=== PATIENT | male | born 1955 | race Caucasian/White ===

== ENCOUNTER 2024-04-15 11:24 | Outpatient (OUT) | payer SELFPAY | END 2024-04-15 11:25 | disposition home or self-care (01) | LOC: PST 11:25 | PROVIDERS: Visit Provider Urology | DX: Z01.818 Encounter for other preprocedural examination (principal); R97.20 Elevated prostate specific antigen [PSA] ==

== ENCOUNTER 2024-04-22 07:22 | Day surgery (SDC) | payer MEDICARE, OTHER, SELFPAY ==
--- OUTSIDE RECORDS SUMMARY | 2024-04-22 07:29 | XMS_ITS | CCD ---
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 baseline levels established preoperatively The patient is at or returning to normothermia at the conclusion of the immediate postoperative period The patient's respiratory function is consistent with or improved from baseline levels established preoperatively The patient's cardiovascular status is consistent with or improved from baseline levels established preoperatively The patient's cardiovascular status is consistent with or improved from baseline levels established preoperatively The patient demonstrates and/or reports adequate pain control throughout the perioperative period The patient received appropriate medication(s), safely administered during the perioperative period Acuity Level PACU I FT Entry 1 Start Time 03/27/24 10:52:00 Stop Time 03/27/24 11:22:00 Acuity Level Acuity Level I Last Modified By: Mulu Aguayo RN 03/27/24 11:48:29 Finalized By: Mulu Aguayo RN Document Signatures Signed By: Mulu Aguayo RN 03/27/24 11:48 [facility] Main OR Preoperative Recordo n 03-27-2024 Main OR Preoperative Record Main OR Preoperative Record Holding Area Document Type FT Summary Primary Physician: Galina CUETO, Margot Escobedo Finalized Date/Time: 03/27/24 09:10:48 Pt. Name: PRISCILA DAVIES /Sex: 1955 Male Med Rec #: [id number] Physician: Margot Mojica MD Financial #: [id number] Pt. Type: O Room/Bed: / Admit/Disch: 03/27/24 08:52:25 - Institution: Case Times Holding FT Pre-Care Text: Verifies consent for planned procedure, identifies individual values and wishes concerning care, includes family members in perioperative teaching Secures patient's records' belongings, and valuables, maintains patient's dignity and privacy, and maintains patient confidentiality Entry 1 In Holding 03/27/24 09:06:00 Outcomes Met? Yes Last Modified By: Cait Armendariz RN 03/27/24 09:07:11 Post-Care Text: The patient participates in decisions affecting his or her perioperative plan of care The patient's right to privacy is maintained Surgery Checklist FT Entry 1 Patient Birthday, ID Band Procedure History and Physical, Identification: Check, Patient Verification: Surgical Consent, With Participation Patient Results Reviewed Yellow Personal Items: Glasses, Jewelry Comments: Personal Items Glassess, watch Limitations: Vision, hard of hearing Comment: Complaints of Pain: No Pain Comment: Denies Operative Site n/a Availability Equipment Marking: Verified: Does Patient Smoke No Patient states Yes Comment - Adult - Gert postop adult Supervision supervision available Case Cancelled in No Holding Area see comments below for reason Last Modified By: Cait Armendariz RN 03/27/24 09:10:43 General Comments: Pt completed prep at 0600 and remained NPO since/DESEAN,RN Finalized By: Cait Armendariz RN Document Signatures Signed By: Cait Armendariz RN 03/27/24 09:10 Normal [facility] Outpatient Surgery Discharge Instructionon 03-27-2024 Outpatient Surgery Discharge Instruction Outpatient Surgery Discharge Instruction [address] [address] Patient Discharge Instructions PERSON INFORMATION Name: PRISCILA DAVIES Date of : 1955 Current Date: 03/27/2024 10:24:37 PHYSICIANS Admitting Physician: Galina CUETO, Margot Escobedo Discharge Diagnosis: Colon polyps PRISCILA DAVIES has been given the following list of follow-up instructions, prescriptions, and patient education materials: PATIENT FOLLOW-UP INFORMATION Diet: Regular Discharge Activity: Resume normal activities in 24 hours Discharge Restrictions: No driving for 24 hrs Call Your Doctor For: Persistent or heavy bleeding IF UNABLE TO CONTACT YOUR PHYSICIAN AND YOU FEEL IT IS AN EMERGENCY, GO TO THE NEAREST EMERGENCY ROOM OR CALL 911 I, PRISCILA DAVIES, have received the attached patient education materials/instruction s and have verbalized understanding: May we do a follow up call? Yes No I was present when discharge instructions were given Patient Signature Date Clinican/Nurse Signature Date Follow up: Type Location Start Finish [facility] URO Office Visit [facility] [place] 08/17/2024 12:30 PM 08/17/2024 12:45 PM Confirmed Pharmacy Information: You may receive a survey from Oren Ortega asking you to rate your care experience. Your feedback is important and will help us understand what we do well and how we can improve the quality of care we provide to you, your loved ones and our community. It?s an honor to serve you. Thank you for choosing [facility] HERE ARE THE MEDICATION CHANGES THAT OCCURRED DURING YOUR HOSPITAL STAY Medications to Continue with No Changes Other Medications atorvastatin (atorvastatin 10 mg Tab) 1 Tablets By Mouth every day. fluticasone nasal (fluticasone 0.05 mg/inh Nasal [place]) 2 Sprays Nasal Inhalation every day as needed Congestion. each nostril. Refills: 2. lisinopril (lisinopril 5 mg Tab) 5 Milligram By Mouth 2 times a day. loratadine (loratadine 10 mg Tab) 1 Tablets By Mouth every day. Refills: 2. PATIENT EDUCATION INFORMATION Instructions: Medication Leaflets: [facility] MR prostate wo/w conon 03-25 MR prostate wo/w con [facility] Main [place] [address] [place] [address] MRI Report Signed Patient: Priscila Davies MR#: [id number] : 1955 Acct:[id number] Age/Sex: 69 / M ADM Date: 03/24/24 Loc: Room: Type: [facility] Attending Dr: Erin Schuster MD Copies to: Erin Schuster MD Ordering Provider: Erin Schuster MD Date of Service: 03/24/24 MR/MR prostate wo/w con: R97.20 EXAMINATION: MR prostate wo/w con HISTORY: Elevated PSA. COMPARISON: NONE TECHNIQUE: Multiparametric imaging of the prostate gland was performed with IV contrast. FINDINGS: Prostate Dimensions: 6.0 x 3.7 x 5.8 cm. Prostate Volume: 67 mL. Peripheral Zone: Heterogenous inT2 signal suggestive of prior prostatitis. A focal area of T2 hypointensity is seen involving the posterior aspect of the left peripheral zone at the level of the mid gland measuring 7 x 6 mm with associated restricted diffusion and low ADC value. No gross extracapsular extension is seen. Please see series 4 image 18, series 650 image 20 and series 600 image 20. Central/Transitional Zone: BPH changes. Seminal Vesicles: Unremarkable Neurovascular bundles: Unremarkable. Lymphadenopathy: No evidence of lymphadenopathy. Bladder: No focal lesion. Bowel: Diverticulosis. Peritoneal Cavity: No free fluid. Bones: No suspicious bony lesion. MR/MR prostate wo/w con IMPRESSION: A focal area of T2 hypointensity is seen involving the posterior aspect of the left peripheral zone at the level of the mid gland measuring 7 x 6 mm with associated restricted diffusion and low ADC value. No gross extracapsular extension is seen. Please see series 4 image 18, series 650 image 20 and series 600 image 20. PI-RADS 4. Targeting of this area on biopsy is recommended. Impression dictated by: Davie Meyer Jr., Amadeo03/25/2024 12:37 PM Dictation Location: [place] [address] Transcribed By: [facility] 03/25/24 1237 Dictated By: Davie Meyer Jr, DO 03/25/24 1225 Signed By: 03/25/24 1237 Normal [facility] ISTAT XRay CREon 03-24-2024 ISTAT GFR 43.369 Normal [facility] Comment on above: Result Comment: PERF ORMED BY: [place] [address] PATHOLOGIST [employer] DONTA SUMNER M.D. Performed By: #### I SCRE #### [address] No Panel InformationOrdered By: Erin Schuster on 03-24-2024 Bedside Estimated GFR (eGFR) 43.369 [facility] Whole blood creatinine measu rementOrdered By: Erin Schuster on 03-24-2024 Creatinine [Mass/Vol] 1.7 mg/dL High 0.6-1.3 [facility] Comment on above: ER/ESD physician is notified/shown all ISTAT results.Critical values may be confirmed by laboratory testing ifdeemed necessary by ER attending doctor. Result Comment: ER/E SD physician is notified/shown all ISTAT results. Critical values may be confirmed by laboratory testing if deemed necessary by ER attending doctor. Performed By: #### I SCRE #### [address] Ambulatory Visit Summaryon 0 8-19-2024 Ambulatory Visit Summary Ambulatory Visit Summary PRISCILA DAVIES :1955 Visit Date:03/23/2024 Ambulatory Visit Instructions Your Diagnosis History of colon polyps Obesity Your Care Team Attending Physician - Galina CUETO, Margot Escobedo Primary Care Physician - Laci MICHELLE MD This Is Your Medications List Contact prescribing physician if questions or concerns atorvastatin (atorvastatin 10 mg Tab) fluticasone nasal (fluticasone 0.05 mg/inh Nasal [place]) lisinopril (lisinopril 5 mg Tab) loratadine (loratadine 10 mg Tab) Procedures Performed Colonoscopy (03/11/2019), Eye surgery. Discharge Vitals Heart Rate (Peripheral) 79 Blood Pressure 134/87 Height 72 in Height 182 cm Weight 272.14 lb Weight 123.7 kg BMI 37.34 What to do next Scheduled Follow-Up Appointments Saturday 12:30 PM EST With: Landen CUETO, Erin Hay Where: [facility] [address], [address] [place] [address]- Medications What How Much When Why Instructions Unchanged atorvastatin (atorvastatin 10 mg Tab) 1 Tablets By Mouth Every day Contact prescribing physician if questions or concerns Unchanged fluticasone nasal (fluticasone 0.05 mg/ inh Nasal [place]) 2 Sprays Nasal Inhalation Every day as needed for Congestion Allergic rhinitis, seasonal each nostril Contact prescribing physician if questions or concerns Unchanged lisinopril (lisinopril 5 mg Tab) 5 Milligram By Mouth 2 times a day Contact prescribing physician if questions or concerns Unchanged loratadine (loratadine 10 mg Tab) 1 Tablets By Mouth Every day Allergic rhinitis, seasonal Contact prescribing physician if questions or concerns Allergies Grass (Unknown) No Known Medication Allergies Problems Ongoing - Any problem that you are currently receiving treatment for. Allergic rhinitis, seasonal BMI 35.0-35.9,adult Chronic pain of right knee Concussion with no loss of consciousness Edema of left upper eyelid Elevated PSA Encounter for staple removal History of colon polyps HTN (hypertension) Laceration of occipital region of scalp Mass of right kidney Obesity due to excess calories Renal cyst Renal mass Screening PSA (prostate specific antigen) Spasm of back muscles Historical - Any problem that you are no longer receiving treatment for. Chicken pox Measles Mumps Patient Survey You may receive a survey via text or e-mail asking about your office visit. Please share your experience with us by completing your survey. We appreciate your feedback and thank you for choosing us for your care. Crescencio Peguero [facility] Gastroenterology Office/Clin ic Noteon 03-23-2024 Gastroenterology Office/Clinic Note Gastroenterology Office/Clinic Note Chief Complaint Colonoscopy recall HPI Staff Patient is a 69 year old male who presents today for a 5 year colonoscopy recall. Denies Fhx colon cancer. Denies previous EGD. Denies n/v/c/d, abd pain, bloody or mucus stools. Blood thinners? no GLP-1 agonists? no Colonoscopy 03/11/19 w/Dr. Dennis: Findings small size external hemorrhoids moderate size internal hemorrhoids a 8mm ascending colon polyp was completely removed and retrieved using hot snare a 3 mm sigmoid polyp was removed and retrieved using cold snare Recommendations: Repeat colonoscopy:: In 5 years, Pending pathology results. Pathology: Final Diagnosis (Verified) A: POLYP, ASCENDING COLON, POLYPECTOMY: ? CAUTERIZED HYPERPLASTIC POLYP. B: POLYP, SIGMOID COLON, POLYPECTOMY: ? HYPERPLASTIC POLYP. MRI abd 02/07/24: IMPRESSION: MILD INTERVAL ENLARGEMENT OF MARGINAL CYSTIC COMPONENTS OF AN OTHERWISE STABLE APPEARING BOSNIAK 2F RIGHT UPPER POLE RENAL CYSTIC MASS. NO OTHER SIGNIFICANT CHANGES FROM 11/05/2022, NOTED. Laboratory Results CMP Creatinine: 1.3 mg/dL (02/07/24) History of Present Illness Asymptomatic Review of Systems PHQ Score Initial Depression Screen Score: 0 SCORE Physical Exam Vitals & Measurements HR: 79(Peripheral) BP: 134/87 HT: 72 in HT: 182 cm WT: 123.7 kg WT: 272.14 lb BMI: 37.34 Assessment/Plan 1. History of colon polyps (Z86.010: Personal history of colonic polyps) Multiple polyps, hyperplastic, no other risk factors Ordered: Colonoscopy (Hospital Procedure) 2. Obesity (E66.9: Obesity, unspecified) bmi 37 We discussed diet Follow-up No qualifying data available Problem List/Past Medical History Ongoing Allergic rhinitis, seasonal BMI 35.0-35.9,adult Chronic pain of right knee Concussion with no loss of consciousness Edema of left upper eyelid Elevated PSA Encounter for staple removal History of colon polyps HTN (hypertension) Laceration of occipital region of scalp Mass of right kidney Obesity due to excess calories Renal cyst Renal mass Screening PSA (prostate specific antigen) Spasm of back muscles Historical Chicken pox Measles Mumps Procedure/Surgical History Colonoscopy (03/11/2019), Eye surgery. Medications atorvastatin 10 mg Tab, 10 mg= 1 tab(s), Oral, Daily fluticasone 0.05 mg/inh Nasal [place], 2 spray(s), Nasal, Daily, PRN, 2 refills lisinopril 5 mg Tab, 5 mg, Oral, BID loratadine 10 mg Tab, 10 mg= 1 tab(s), Oral, Daily, 2 refills Allergies Grass (Unknown) No Known Medication Allergies Social History Alcohol Current, 03/02/2019 Other Substance Abuse - Denies Substance Abuse, 03/02/2019 Tobacco - Denies Tobacco Use, 06/01/2021 Never (less than 100 in lifetime) Tobacco Use:. Never Smokeless Tobacco Use:., 03/23/2024 Never (less than 100 in lifetime) Tobacco Use:., 02/10/2024 Family History Family history is negative Immunizations Vaccine Date Status Comments influenza virus vaccine, inactivated 05/31/2022 Recorded tetanus-diphtheria toxoids 04/12/2022 Given influenza virus vaccine, inactivated - Not Given Patient Refuses Normal [facility] Comment on above: Result Comment: Elec tronically Signed By: Galina CUETO, Margot Escobedo\.br\Date and Time Signed: 03/23/24 09:02 EDT Patient Letter FTon 2023 Patient Letter [facility] Patient Letter [facility] 2024 PRISCILA DAVIES [address] [place] [address] : 1955 Dear Priscila, This is a reminder that you are due for an appointment with [facility]. Please contact our office at [phone] to schedule your 5 year colon recall Thank you, [facility] [phone] Normal [facility] CHEMISTRYOrdered By: SYSTEM SYSTEM on 02-17-2024 Free PSA [Mass/Vol] 1.3 ng/mL Invalid Interpretation Code Remisol [facility] Comment on above: Interpretive Data: T he concentration of free PSA and total PSA determined with assays from different manufacturers can vary due to differences in assay methods and specificity. Values obtained with different textile designer's assays cannot be used interchangeably. The methodology used to obtain this result was chemiluminescence using [employer]'s Access Hybritech PSA reagent and Access Hybritech free PSA reagent. Free PSA/Total PSA [Mass fraction] 26.0 % Normal >=25.0% Remisol Chem Prostate specific Ag [Mass/Vol] 5.0 ng/mL High 0.1 - 3.5 ng/mL [facility] Comment on above: Interpretive Data: T he concentration of PSA determined by different manufacturers can vary due to differences in assay methods and reagent specificity. Values obtained from different assay methods cannot be used interchangeably. The methodology used for this result was chemiluminescence using [employer]'s Access Hybritech PSA reagent. PSA Free & Totalon 4 Free PSA/Total PSA [Mass fraction] 26.0 % Normal >=25.0 [facility] Comment on above: Performed By: #### 1 [id number] ####[id number] [place] [address] Prostate specific Ag [Mass/Vol] 5.0 ng/mL High 0.1-3.5 [facility] Comment on above: Result Comment: The concentration of PSA determined by different manufacturers can vary due to differences in assay methods and reagent specificity. Values obtained from different assay methods cannot be used interchangeably. The methodology used for this result was chemiluminescence using [employer]'s Access Hybritech PSA reagent. Performed By: #### 1 [id number] ####[id number] [place] [address] Free PSA [Mass/Vol] 1.3 ng/mL Invalid Interpretation Code [facility] Comment on above: Result Comment: The concentration of free PSA and total PSA determined with assays from different manufacturers can vary due to differences in assay methods and specificity. Values obtained with different textile designer's assays cannot be used interchangeably. The methodology used to obtain this result was chemiluminescence using [employer]ie [employer]'s Access Hybritech PSA reagent and Access Hybritech free PSA reagent. Performed By: #### 1 [id number] ####[facility] [id number] [place] [address] Ambulatory Visit Summaryon 0 02-10-2024 Ambulatory Visit Summary Ambulatory Visit Summary PRISCILA DAVIES :1955 Visit Date:02/10/2024 Ambulatory Visit Instructions Your Diagnosis Renal cyst Elevated PSA Your Care Team Attending Physician - Landen CUETO, Erin Hay Primary Care Physician - Laci MICHELLE MD This Is Your Medications List Contact prescribing physician if questions or concerns atorvastatin (atorvastatin 10 mg Tab) fluticasone nasal (fluticasone 0.05 mg/inh Nasal [place]) lisinopril (lisinopril 5 mg Tab) loratadine (loratadine 10 mg Tab) Procedures Performed Eye surgery. Discharge Vitals Heart Rate (Peripheral) 91 Respiratory Rate 19 Blood Pressure 146/86 Height 183 cm Height 72 in Weight 118.8 kg Weight 261.36 lb BMI 35.47 What to do next You Need to Schedule the Following Appointments Follow Up with Landen CUETO, Erin Hay, URL, URO When: Where: You Need to Complete the Following PSA Free & Total, Blood, Routine collect, 02/10/24, Order for future visit, Lab Collect, Elevated PSA, Required & Missing, Print Label By Order Location MRI Abdomen w/ + w/o Contrast, 07/05/24, Routine, Order for Future Visit, Transport Mode: Ambulatory, Reason: Other (please specify), Reason: Bosniak 2F renal cyst, No, No, Renal cyst, pp_set_radiology_subs pecialty, Not Required, Peguero - Benjamin Medications What How Much When Why Instructions Unchanged atorvastatin (atorvastatin 10 mg Tab) 1 Tablets By Mouth Every day Contact prescribing physician if questions or concerns Unchanged fluticasone nasal (fluticasone 0.05 mg/ inh Nasal [place]) 2 Sprays Nasal Inhalation Every day as needed for Congestion Allergic rhinitis, seasonal each nostril Contact prescribing physician if questions or concerns Unchanged lisinopril (lisinopril 5 mg Tab) 5 Milligram By Mouth 2 times a day Contact prescribing physician if questions or concerns Unchanged loratadine (loratadine 10 mg Tab) 1 Tablets By Mouth Every day Allergic rhinitis, seasonal Contact prescribing physician if questions or concerns Allergies Grass (Unknown) No Known Medication Allergies Problems Ongoing - Any problem that you are currently receiving treatment for. Allergic rhinitis, seasonal BMI 35.0-35.9,adult Chronic pain of right knee Concussion with no loss of consciousness Edema of left upper eyelid Elevated PSA Encounter for staple removal HTN (hypertension) Laceration of occipital region of scalp Mass of right kidney Obesity due to excess calories Renal cyst Renal mass Screening PSA (prostate specific antigen) Spasm of back muscles Historical - Any problem that you are no longer receiving treatment for. Chicken pox Measles Mumps Patient Survey You may receive a survey via text or e-mail asking about your office visit. Please share your experience with us by completing your survey. We appreciate your feedback and thank you for choosing us for your care. Education Materials Prostate Cancer Screening Prostate cancer screening is testing that is done to check for the presence of prostate cancer in men. The prostate gland is a walnut-sized gland that is located below the bladder and in front of the rectum in males. The function of the prostate is to add fluid to semen during ejaculation. Prostate cancer is one of the most common types of cancer in men. Who should have prostate cancer screening? Screening recommendations vary based on age and other risk factors, as well as between the professional organizations who make the recommendations. In general, screening is recommended if: ? You are age 50 to 70 and have an average risk for prostate cancer. You should talk with your health care provider about your need for screening and how often screening should be done. Because most prostate cancers are slow growing and will not cause , screening in this age group is generally reserved for men who have a 10- to 15-year life expectancy. ? You are younger than age 50, and you have these risk factors: ? Having a father, brother, or uncle who has been diagnosed with prostate cancer. The risk is higher if your family member's cancer occurred at an early age or if you have multiple family members with prostate cancer at an early age. ? Being a male who is Black or is of Noah or sub-Saharan descent. In general, screening is not recommended if: ? You are younger than age 40. ? You are between the ages of 40 and 49 and you have no risk factors. ? You are 70 years of age or older. At this age, the risks that screening can cause are greater than the benefits that it may provide. If you are at high risk for prostate cancer, your health care provider may recommend that you have screenings more often or that you start screening at a younger age. How is screening for prostate cancer done? The recommended prostate cancer screening test is a blood test called the prostate-specific antigen (PSA) test. PS (more content not included)... Normal [facility] Reminderson 02-10-2024 Reminders Reminders From: Tanya Higgins To: MEERA Schuster; Sent: 02/10/2024 13:46:09 EDT Show up: 06/12/2024 12:46:00 EST Subject: MRI Due Date/Time: 07/12/2024 12:46:00 EST Reminder Message Pt needs sched for MRI abd w/wo IV con in 6 mos at [facility]. Orders placed. Normal [facility] Urology Office/Clinic Noteon 02-10-2024 Urology Office/Clinic Note Urology Office/Clinic Note Chief Complaint 1 year with PSA and MRI HPI Staff 68 year old male here for 6 month follow up with PSA. MRI done 11/05/22. Previous DX: Renal cyst, screening PSA. MRI 02/07/24. PSA 2.2 done 02/02/23. Dysuria: no Incomplete bladder emptying: Pt. states most of the time he does feel empty Hematuria: UA shows trace today Frequency: 3 hours or longer Urgency: no Nocturia: no Stream: good stream Post void dripping: no Wearing pads/ Depends: no Urge incontinence: no Stress incontinence: no Incontinence without Sensory Awareness: no Abdominal pain: no Flank pain: no History of Present Illness Tests reviewed: reviewed UA, PSA, MRI. I have reviewed the previous health record information and history for this patient from Dr. Schuster. I have reviewed and verified the staff HPI to be accurate for this encounter. There have been no associated fever, chills, flank pain, or blood in the urine. Denies any urinary infections since last encounter. Review of Systems PHQ Score Initial Depression Screen Score: 0 SCORE ROS - Provider Constitutional: denies weight loss, denies hot flashes. Eyes: denies eye problems. Gastrointestinal: denies nausea, denies vomiting. Cardiovascular: denies chest pain or angina. Integumentary: no dryness Musculoskeletal: denies musculoskeletal symptoms. ENMT: denies otolaryngeal symptoms. Respiratory: no shortness of breath. Heme/Lymph: denies easy bleeding tendency, denies easy bruising tendency. Psychiatric: no confusion, no anxiety. Genitourinary: See HPI. Physical Exam Vitals & Measurements HR: 91(Peripheral) RR: 19 BP: 146/86 HT: 72 in HT: 183 cm WT: 118.8 kg WT: 261.36 lb BMI: 35.47 General Appearance: alert, no distress, well nourished, well developed male. Prostate: nontender. Left higher than right. No nodules. Assessment/Plan 68-year-old male with a history of complex renal cyst presents for follow-up. DYAN 25 (5) 1. Renal cyst (N28.1: Cyst of kidney, acquired) Denies family hx of cancers. No smoking hx. CT TAP w IV contrast 04/12/22 at [facility] - 1.8 cm structure, right kidney lateral cortex interpolar region, most likely hemorrhagic/proteinac eous cyst. Multiple bilateral renal cortical and parapelvic cysts. No urinary tract calculi or hydronephrosis. Urinary bladder is well distended. The prostate is enlarged. MRI Abdomen w/wo 05/30/22 - 2.2 cm exophytic complex cystic mass mid pole right kidney laterally. Bosniak IIF cystic renal mass. US retroperitoneal 09/24/22 - stable approximately 2cm Bosniak IIF right renal cyst. MRI abd w/wo contrast 11/05/22 - stable, 2.2cm mildly enhancing partially exophytic lesion arising from the anterolateral of the mid right kidney, consistent with Bosniak IIF cystic mass. MRI abd w/wo IV con 02/07/24 [facility] - mild interval enlargement of marginal cystic components of an otherwise stable appearing Bosniak 2F right upper pole renal cystic mass 3.8 x 2.6 x 2.2 cm (prior 3.3 x 2.2 x 2.0 cm). A mildly septated approx 1.6 cm lesion arising from the medial aspect of the lower pole of the right kidney and numerous other small nonenhancing simple cortical and peripelvic cysts have not significantly changed. Results reviewed with pt If cyst would continue to grow pt would likely benefit from surgical removal. Will cont to monitor closely -MRI abd w/wo IV con in 6 mos 2. Elevated PSA (R97.20: Elevated prostate specific antigen [PSA]) PSA: 02/02/23 - 2.2 02/07/24 - 5.4 IPSS 4 (2) No urinary concerns. UA today shows trace-lysed blood. No known family hx of prostate cancer. Pt states brother might of . Denies prostate manipulation leading up to blood draw. No prior DREs. CHRIS: nontender. Left higher than right. No nodules. Today I reviewed the patients past history including voiding symptoms, PSA history and any prior prostate biopsy information that is available. We discussed the controversies that exist in the field of PSA based cancer testing and the absence of exact correlation of PSA data to the presence or absence of prostate cancer on biopsy. I discussed the production of PSA by the prostate gland as well as common causes of elevated serum PSA including infection, inflammation, BPH and prostate cancer. He understood that his PSA level may also be falsely elevated due to any manipulation/instrume ntation around the time of a PSA draw. I discussed the absolute value of PSA as well as PSA velocity and age specific PSA and the implications with the patient. I gave the patient management options moving forward and explained the risks/benefits of each one: -Continue monitoring PSA with repeat in 6-12 months -Obtain additional biomarkers such as select MDX -Obtain prostate MRI to evaluate for suspicious lesions. He understands MRIs may miss malignancy in 12-16% of patients. Pt to repeat PSA with free & total in 1 wk. Will proceed with prostate MRI if PSA elevation is confirmed. Advised pt that bx will be indic (more content not included)... Normal [facility] Comment on above: Result Comment: Elec tronically Signed By: Erin Schuster MD\.br\Date and Time Signed: 02/10/24 13:50 EDT\.br\Electronically Co-Signed By: Tanya Higgins.br\Date and Time Co-Signed: 02/10/24 13:45 EDT MRI Abdomen w/ + w/o Contras ton 02-09-2024 MRI Abdomen w/ + w/o Contrast Exam Date/Time: 02/07/2024 12:45 EDT Reason for Exam: N28.89;Renal mass Report IMPRESSION: MILD INTERVAL ENLARGEMENT OF MARGINAL CYSTIC COMPONENTS OF AN OTHERWISE STABLE APPEARING BOSNIAK 2F RIGHT UPPER POLE RENAL CYSTIC MASS. NO OTHER SIGNIFICANT CHANGES FROM 11/05/2022, NOTED. EXAM: MRI Abdomen w/ + w/o Contrast DATE: 02/07/2024 11:52 AM CLINICAL HISTORY: Renal mass, N28.89. COMPARISON: 11/05/2022. TECHNIQUE: Multiplanar MR imaging of the abdomen was performed before and after intravenous administration of approximately 10 mL of Vueway gadolinium contrast. FINDINGS: A mildly septated partially exophytic cystic mass arising from the anterolateral aspect of the upper pole of the right kidney is again noted, with interval enlargement of nonenhancing cystic components its posterior and anteromedial margins. The small bandlike minimally enhancing septa appear similar, without significantly increased thickening or nodularity. The lesion measures approximately 3.8 x 2.6 x 2.2 cm in aggregate AP, transverse and sagittal dimensions respectively (compared to 3.3 x 2.2 x 2.0 cm, measured in a similar fashion. A mildly septated approximately 1.6 x 1.2 x 1.0 cm lesion arising from the medial aspect of the lower pole of the right kidney and numerous other small nonenhancing simple cortical and peripelvic cysts have not significantly changed. An approximately 2 cm gallstone is again noted within There is no lymphadenopathy, ascites, or other findings of concern identified elsewhere. Ordering Provider: Erin Schuster FINAL REPORT Dictated: 02/09/2024 10:03 am Luis Nuñez MD Signed (Electronic Signature): 02/09/2024 10:03 am Signed by: Luis Nuñez MD Transcribed by: LISSY Technologist: SOPHIA Technical Comments Vuewkain Technical Comments Contrast amount in ml's: 10 Normal [facility] CHEMISTRYOrdered By: SYSTEM SYSTEM on 02-07-2024 Prostate specific Ag [Mass/Vol] 5.4 ng/mL High 0.1 - 3.5 ng/mL [facility] Comment on above: Interpretive Data: T he concentration of PSA determined by different manufacturers can vary due to differences in assay methods and reagent specificity. Values obtained from different assay methods cannot be used interchangeably. The methodology used for this result was chemiluminescence using [employer]'s Access Hybritech PSA reagent. Creatinine [Mass/Vol] 1.3 mg/dL Normal 0.5 - 1.3 mg/dL [facility] eGFR 60 mL/min/1.73 m2 Normal >=59mL/min /1 .73 m2 [facility] Creatinineon 02-07-2024 Creatinine [Mass/Vol] 1.3 mg/dL Normal 0.5-1.3 [facility] Comment on above: Performed By: #### [id number] #### [facility] [place] Laboratory [address] [place] [address] PSA Totalon 02-07-2024 Prostate specific Ag [Mass/Vol] 5.4 ng/mL High 0.1-3.5 [facility] Comment on above: Result Comment: The concentration of PSA determined by different manufacturers can vary due to differences in assay methods and reagent specificity. Values obtained from different assay methods cannot be used interchangeably. The methodology used for this result was chemiluminescence using [employer]'s Newspepper Hybritech PSA reagent. Performed By: #### 1 [id number] #### [facility] Laboratory [address] [place] [address] eGFRon 02-07-2024 eGFR 60 mL/min/1.73 m2 Normal >=59 [facility] Comment on above: Order Comment: Order added by Discern Expert. Performed By: #### 1 [id number] #### [facility] [place] Laboratory [address] [place] [address] CHEMISTRYOrdered By: fitmob on 11-05-2022 Creatinine [Mass/Vol] 1.4 mg/dL High 0.5 - 1.3 mg/dL [facility] Remisol GFR/1.73 sq M.predicted among blacks MDRD (S/P/Bld) [Vol rate/Area] mL/min/1.73 m2 Normal >=59mL/min/1 .73 m2 [facility] Chem S GFR/1.73 sq M.predicted among non-blacks MDRD (S/P/Bld) [Vol rate/Area] 51 mL/min/1.73 m2 Low >=59mL/min/1 .73 m2 [facility] Chem S BLOOD BANKOrdered By: Humberto Sood on 04-12-2022 ABO/Rh Interp Positive Invalid Interpretation Code [facility] BB Subsection ABSC Gel Interp Negative (04/12/22 11:14 PM) Normal [facility] BB Subsection CHEMISTRYOrdered By: Magisto SYSTEM on 04-12-2022 Albumin [Mass/Vol] 4.0 g/dL Normal 3.3 - 5.0 gm/dL [facility] Remisol Albumin/Globulin [Mass ratio] 1.0 {ratio} Low 1.1 - 2.2 [facility] Remisol ALP [Catalytic activity/Vol] 72 [iU]/d Normal 21 - 98 Int._Unit/L [facility] Remisol ALT No additional P-5'-P [Catalytic activity/Vol] 24 [iU]/d Normal 6 - 46 Int._Unit/L [facility] Remisol Anion gap [Moles/Vol] 14 mmol/L Normal 6 - 16 mEq/L [facility] Remisol AST [Catalytic activity/Vol] 25 [iU]/d Normal 5 - 43 Int._Unit/L [facility] Remisol Bilirubin [Mass/Vol] 1.2 mg/dL High 0.0 - 1 .1 mg/dL [facility] Remisol Bilirubin.direct [Mass/Vol] 0.2 mg/dL Normal 0.1 - 0.4 mg/dL [facility] Remisol Bilirubin.indirect [Mass or moles/Vol] 1.0 mg/dL High 0.1 - 0.9 mg/dL [facility] Remisol Calcium [Mass/Vol] 8.9 mg/dL Normal 8.9 - 11. 1 mg/dL [facility] Remisol Chloride [Moles/Vol] 106 mmol/L Normal 101 - 1 11 mmol/L [facility] Remisol CO2 [Moles/Vol] 24 mmol/L Normal 21 - 31 mmol/L [facility] Remisol Creatinine [Mass/Vol] 1.3 mg/dL Normal 0.5 - 1.3 mg/dL [facility] Remisol Ethanol [Mass/Vol] mg/dL Normal <=7mg/dL [facility] emisol GFR/1.73 sq M.predicted among blacks MDRD (S/P/Bld) [Vol rate/Area] mL/min/1.73 m2 Normal >=59mL/min/1 .73 m2 [facility] Chem S GFR/1.73 sq M.predicted among non-blacks MDRD (S/P/Bld) [Vol rate/Area] 55 mL/min/1.73 m2 Low >=59mL/min/1 .73 m2 [facility] Chem S Globulin (S) [Mass/Vol] 3.9 g/dL Normal 1.4 - 4.0 gm/dL [facility] Remisol Glucose [Mass/Vol] 96 mg/dL Normal 55 - 199 mg/dL [facility] Remisol Lactate [Mass/Vol] 2.9 mmol/L High 0.5 - 2.2 mmol/L [facility] Remisol Lipase [Catalytic activity/Vol] 33 U/L Normal 13 - 58 unit/L [facility] Remisol Potassium [Moles/Vol] 4.9 mmol/L Normal 3.5 - 5.3 mmol/L [facility] Remisol Protein [Mass/Vol] 7.9 g/dL High 6.0 - 7.8 gm/dL [facility] Remisol Sodium [Moles/Vol] 139 mmol/L Normal 135 - 145 mmol/L [facility] Remisol Troponin I.cardiac [Mass/Vol] 5.50 pg/mL Low 15.90 - 38.40 pg/mL [facility] Remisol Urea nitrogen [Mass/Vol] 24 mg/dL High 5 - 21 mg/dL [facility] Remisol Urea nitrogen/Creatinine [Mass ratio] 18 mg/mg Normal 10 - 20 [facility] Remisol COAGULATIONOrdered By: Humberto Sood on 04-12-2022 aPTT Coag (PPP) [Time] 31.2 s Normal 25.1 - 36.5 second(s) [facility] Auto Coag INR Coag (PPP) [Relative time] 1.0 {INR} Invalid Interpretation Code [facility] Auto Coag PT Coag (PPP) [Time] 11.4 s Normal 9.4 - 1 2.5 second(s) [facility] Auto Coag HEMATOLOGYOrdered By: SYSTEM SYSTEM on 04-12-2022 Basophils/100 WBC (Bld) 0.4 % Normal 0.0 - 2.0 % [facility] HemeAutoSS Basophils/Leukocytes Auto (Bld) [Pure # fraction] 0.1 E9/L Normal 0.0 - 0.2 E9/L [facility] HemeAutoSS Eosinophils/100 WBC (Bld) 2.0 % Normal 0.0 - 8.0 % [facility] HemeAutoSS Eosinophils/Leukocytes Auto (Bld) [Pure # fraction] 0.3 E9/L Normal 0.0 - 0.5 E9/L [facility] HemeAutoSS Lymphocytes/100 WBC (Bld) 13.7 % Low 14.0 - 50.0 % [facility] HemeAutoSS Lymphocytes/Leukocytes Auto (Bld) [Pure # fraction] 1.7 E9/L Normal 1.0 - 4.0 E9/L [facility] HemeAutoSS Monocytes/100 WBC (Bld) 6.6 % Normal 4.0 - 14.0 % [facility] HemeAutoSS Monocytes/Leukocytes Auto (Bld) [Pure # fraction] 0.8 E9/L Normal 0.2 - 1.0 E9/L [facility] HemeAutoSS Neutrophils/100 WBC (Bld) 77.3 % High 36.0 - 75.0 % [facility] HemeAutoSS Neutrophils/Leukocytes Auto (Bld) [Pure # fraction] 9.6 E9/L High 2.0 - 7.5 E9/L [facility] HemeAutoSS HEMATOLOGYOrdered By: Humberto Sood on 04-12-2022 Erythrocyte distribution width (RBC) [Ratio] 14.3 % High 10.9 - 14.2 % [facility] HemeAutoSS Hematocrit (Bld) [Volume fraction] 41.5 % Normal 37.7 - 49.0 % [facility] HemeAutoSS Hemoglobin (Bld) [Mass/Vol] 14.0 g/dL Normal 13.5 - 17.5 gm/dL [facility] HemeAutoSS MCH (RBC) [Entitic mass] 29.2 pg Normal 27.0 - 34.0 pg [facility] HemeAutoSS MCHC (RBC) [Mass/Vol] 33.6 g/dL Normal 31.4 - 36.0 gm/dL [facility] HemeAutoSS MCV (RBC) [Entitic vol] 86.8 fL Normal 80.0 - 100.0 fL [facility] HemeAutoSS Platelet mean volume (Bld) [Entitic vol] 6.8 fL Normal 6.4 - 10.8 fL [facility] HemeAutoSS Platelets (Bld) [#/Vol] 206.0 E9/L Normal 150.0 - 500.0 E9/L [facility] HemeAutoSS RBC (Bld) [#/Vol] 4.8 E12/L Normal 4.3 - 5.9 E12/L [facility] HemeAutoSS WBC corrected for nucl RBC Auto (Bld) [#/Vol] 12.4 E9/L High 4.0 - 11.0 E9/L [facility] HemeAutoSS XR KNEE RIGHT (MIN 4 VIEWS)o n 08-11-2019 XR KNEE RIGHT (MIN 4 VIEWS) EXAM: XR KNEE RIGHT (MIN 4 VIEWS) HISTORY: M25.561 64-year-old male twisted knee March,. Persistent pain. COMPARISON: None. TECHNIQUE: Right knee series consists of standing views of both knees, sunrise, oblique, and lateral right knee. FINDINGS: Chronic small ossicles, 3 in number measuring up to 5 mm along the length of the lateral collateral ligament on the standing view. Mild tricompartmental osteoarthritic change. There might be a small suprapatellar joint effusion. No fracture. Mild degenerative change left knee. IMPRESSION: Chronic calcifications in the region of the lateral collateral ligament right knee. Mild bilateral degenerative changes without fracture. Possibly a small right suprapatellar joint effusion. Interpreted by: Zacarias Parham Jr., MD Signed by: Zacarias Parham Jr., MD 08/11/19 Final result Normal [facility] Vital Signs Date Time Vital Sign Value Performing Clinician Ramiro barton 03-27-2024 11:20-0400 Blood Pressure Location Frost Patrickmini [facility] 03-27-2024 11:20-0400 Diastolic blood pressure 89 mm[Hg] Frost Sarmini [facility] 03-27-2024 11:20-0400 Heart rate 68 /min Frost Patrickmini [facility] 03-27-2024 11:20-0400 Mean blood pressure 110 mm[Hg] Frost Sarmini [facility] 03-27-2024 11:20-0400 Respiratory rate 12 /min Frost Patrickmini [facility] 03-27-2024 11:20-0400 SaO2% (BldA) [Mass fraction] 96 % Frost Patrickmini [facility] 03-27-2024 11:20-0400 Systolic blood pressure 151 mm[Hg] Frost Sarmini [facility] 03-27-2024 11:05-0400 Blood Pressure Location Frost Sarmini [facility] 03-27-2024 11:05-0400 Diastolic blood pressure 93 mm[Hg] Frost Sarmini [facility] 03-27-2024 11:05-0400 Heart rate 73 /min Frost Sarmini [facility] 03-27-2024 11:05-0400 Mean blood pressure 108 mm[Hg] Frost Sarmini [facility] 03-27-2024 11:05-0400 Respiratory rate 15 /min Frost Sarmini [facility] 03-27-2024 11:05-0400 SaO2% (BldA) [Mass fraction] 94 % Frost Sarmini [facility] 03-27-2024 11:05-0400 Systolic blood pressure 139 mm[Hg] Frost Sarmini [facility] 03-27-2024 11:00-0400 Diastolic blood pressure 90 mm[Hg] Frost Sarmini [facility] 03-27-2024 11:00-0400 Heart rate 74 /min Frost Sarmini [facility] 03-27-2024 11:00-0400 Respiratory rate 14 /min Frost Sarmini [facility] 03-27-2024 11:00-0400 Systolic blood pressure 144 mm[Hg] Frost Sarmini [facility] 03-27-2024 10:55-0400 Respiratory rate 17 /min Frost Sarmini [facility] 03-27-2024 10:52-0400 Body temperature 97.7 [degF] Frost Sarmini [facility] 03-27-2024 09:25-0400 Body temperature 98.6 [degF] Frost Sarmini [facility] 03-27-2024 09:25-0400 Respiratory rate 20 /min Frost Sarmini [facility] 03-23-2024 08:39-0400 Diastolic blood pressure 87 mm[Hg] Frost Sarmini [facility] 03-23-2024 08:39-0400 Mean blood pressure 103 mm[Hg] Frost Sarmini [facility] 03-23-2024 08:39-0400 Systolic blood pressure 134 mm[Hg] Frost Sarmini [facility] 03-23-2024 08:34-0400 Blood Pressure Location Frost Sarmini [facility] 03-23-2024 08:34-0400 Diastolic blood pressure 75 mm[Hg] Frost Sarmini [facility] 03-23-2024 08:34-0400 Heart rate 79 /min Frost Sarmini [facility] 03-23-2024 08:34-0400 Systolic blood pressure 154 mm[Hg] Frost Sarmini [facility] 02-10-2024 13:07-0400 Blood Pressure Location Erin Lue [facility] 02-10-2024 13:07-0400 Diastolic blood pressure 86 mm[Hg] Erin Lue [facility] 02-10-2024 13:07-0400 Heart rate 91 /min Erin Lue [facility] 02-10-2024 13:07-0400 Respiratory rate 19 /min Erin Lue [facility] 02-10-2024 13:07-0400 Systolic blood pressure 146 mm[Hg] Erin Lue [facility] 06-07-2022 07:47-0400 Blood Pressure Location Erin Lue [facility] 06-07-2022 07:47-0400 Diastolic blood pressure 76 mm[Hg] Erin Lue [facility] 06-07-2022 07:47-0400 Heart rate 64 /min Erin Lue [facility] 06-07-2022 07:47-0400 Respiratory rate 16 /min Erin Lue [facility] 06-07-2022 07:47-0400 Systolic blood pressure 139 mm[Hg] Erin Lue [facility] 04-20-2022 09:41-0400 Blood Pressure Location Laci MICHELLE [facility] [place] 04-20-2022 09:41-0400 Body temperature 97.52 [degF] Laci MICHELLE [facility] 04-20-2022 09:41-0400 Diastolic blood pressure 86 mm[Hg] Laci MICHELLE [facility] 04-20-2022 09:41-0400 Heart rate 67 /min Fabianbrianna MICHELLE [facility] 04-20-2022 09:41-0400 SaO2% (BldA) [Mass fraction] 97 % Laci MICHELLE [facility] 04-20-2022 09:41-0400 Systolic blood pressure 132 mm[Hg] Laci MICHELLE [facility] 04-13-2022 14:00-0400 Heart rate 84 /min Morgan Reyes [facility] 04-13-2022 14:00-0400 Respiratory rate 15 /min Morgan Reyes [facility] 04-13-2022 14:00-0400 SaO2% (BldA) [Mass fraction] 95 % Morgan Reyes [facility] 04-13-2022 01:17-0400 Diastolic blood pressure 87 mm[Hg] Morgan Reyes [facility] 04-13-2022 01:17-0400 Heart rate 86 /min Morgan Reyes [facility] 04-13-2022 01:17-0400 Mean blood pressure 106 mm[Hg] Morgan Reyes [facility] 04-13-2022 01:17-0400 Respiratory rate 11 /min Morgan Reyes [facility] 04-13-2022 01:17-0400 SaO2% (BldA) [Mass fraction] 98 % Morgan Reyes [facility] 04-13-2022 01:17-0400 Systolic blood pressure 145 mm[Hg] Morgan Reyes [facility] 04-13-2022 00:21-0400 Diastolic blood pressure 85 mm[Hg] Morgan Reyes [facility] 04-13-2022 00:21-0400 Heart rate 85 /min Morgan Reyes [facility] 04-13-2022 00:21-0400 Mean blood pressure 107 mm[Hg] Morgan Reyes [facility] 04-13-2022 00:21-0400 Respiratory rate 16 /min Morgan Reyes [facility] 04-13-2022 00:21-0400 SaO2% (BldA) [Mass fraction] 96 % Morgan Reyes [facility] 04-13-2022 00:21-0400 Systolic blood pressure 150 mm[Hg] Moragn Reyes [facility] 04-12-2022 23:21-0400 Body temperature 98.6 [degF] Morgan Reyes [facility] 04-12-2022 23:21-0400 Diastolic blood pressure 86 mm[Hg] Morgan Reyes [facility] 04-12-2022 23:21-0400 Heart rate 84 /min Morgan Reyes [facility] 04-12-2022 23:21-0400 Respiratory rate 18 /min Morgan Reyes [facility] 04-12-2022 23:21-0400 Systolic blood pressure 154 mm[Hg] Morgan Reyes [facility] 04-12-2022 23:07-0400 Body temperature 98.6 [degF] Morgan Reyes [facility] 04-12-2022 23:07-0400 Heart rate 89 /min Morgan Chambers [facility] 04-12-2022 23:07-0400 Respiratory rate 18 /min Morgan Chambers [facility] Encounters Encounter Date Encounter Type Care Provider Facility Start: 08-17-2024 ambulatory Erin M. Lue Facility[facility] Start: 04-22-2024 ambulatory Erin M. Lue Facility:[facility] Start: 03-27-2024 End: 03-27-2024 ambulatory Frost Talal Sarmini Facility:[facility] Start: 03-27-2024 End: 03-27-2024 Patient encounter procedure Frost Talal Sarmini [facility] Start: 03-24-2024 End: 03-24-2024 Patient encounter procedure MD Riley Michelle Work Phone: [facility] Work Phone: Start: 03-24-2024 End: 03-24-2024 ambulatory MD Riley Michelle Work Phone: [facility] Work Phone: Start: 03-23-2024 End: 03-23-2024 ambulatory Frost Talal Sarmini Facility:[facility] Start: 03-23-2024 End: 03-23-2024 Patient encounter procedure Frost Talal Sarmini [facility] Start: 02-17-2024 End: 02-17-2024 ambulatory Erin M. Lue Facility:[facility] Start: 02-17-2024 End: 02-17-2024 Patient encounter procedure Erin Schuster [facility] Start: 02-10-2024 End: 02-10-2024 ambulatory Erin Brownee Facility:[facility] Start: 02-10-2024 End: 02-10-2024 Patient encounter procedure Erin Schuster [facility] Start: 02-07-2024 End: 02-07-2024 ambulatory Erin Schuster Facility:[facility] Start: 02-07-2024 End: 02-07-2024 Patient encounter procedure Erin Schuster [facility] Start: 11-29-2023 ambulatory Laura Au ty: [facility] Start: 02-04-2023 End: 02-04-2023 Patient encounter procedure Erin Schuster [facility] Start: 02-02-2023 End: 02-02-2023 Patient encounter procedure Erin Schuster [facility] Start: 11-05-2022 End: 11-05-2022 Patient encounter procedure Erin Schuster [facility] Start: 06-07-2022 End: 06-07-2022 Patient encounter procedure Erin Brownee [facility] Start: 04-20-2022 End: 04-20-2022 [facility] Start: 04-12-2022 End: 04-13-2022 Emergency department patient visit Morgan Chambers [facility] Start: 08-11-2019 End: 08-14-2019 [facility] Start: 08-11-2019 End: 08-13-2019 Subsequent hospital visit by physician Jake Barahona DO Work Phone: [facility] Procedures Date Procedure Procedure Detail Performing Clinician Start: 03-27-2024 Colonoscopy Frostephraim Flores armrafaela Start: 08-11-2019 Radiologic exam knee complete 4/more views [facility] Start: 03-11-2019 Colonoscopy Frostephraim salinas Ophthalmic surgery (qualifier value) Morgan Chambers Plan of Treatment Date Care Activity Detail Author Start: 03-24-2024 MR Prostate WO and W contrast IV [facility] Start: 03-24-2024 MR prostate wo/w con MR prostate wo/ w con [facility] Start: 03-01-2024 Colon cancer screen colonoscopy Colon cancer screen colonoscopy [facility] Phone: Start: 04-05-2019 Influenza vaccination Flu vaccine (# 1) [facility] Phone: Start: 02-17-2006 Shingles Vaccine (1 of 2) Shingles Vaccine (1 of 2) [facility] Phone: Start: 02-17-1971 HIV screen HIV screen [facility] Phone: Start: 02-17-1967 DTaP/Tdap/Td vaccine (1 - Tdap) DTaP/Tdap/Td vaccine (1 - Tdap) [employer] Phone: Start: 02-17-1966 Lipid screen Lipid screen [facility] [employer] Work Phone: Start: 1955 Creatinine monitoring Creatinine mon jess [employer] Work Phone: Start: 1955 Hepatitis C screen Hepatitis C echo saavedra [employer] Work Phone: Start: 1955 Potassium monitoring Potassium monit scott [employer] Work Phone: Immunizations Immunization Date Immunization Notes Care Provider Jessica watters 05-31-2022 influenza virus vaccine, unspecified formulation Erin Landen [facility] 04-12-2022 tetanus and diphther ia toxoids, adsorbed, preservative free, for adult use (2 Lf of tetanus toxoid and 2 Lf of diphtheria toxoid) Morgan Chambers [facility] NEGATED: Highlighted row has not occurred!05-26-2021 influenza virus vaccine, unspecified formulation Morgan Chambers [facility] [place] Payers Date Payer Category Payer Self-pay 2024 Unknown [id number] 2023 Medicare [id number] 2014 Unknown [id number] 2014 Unknown BCBS BCBS OUT OF STATE xxxxxxxxxxxx 2014-Present [address] [place] [address] xxxxxxxxxxxx [id number] 1955 Unknown [id number] 1955 Unknown [id number] 1956 Unknown [id number] 1955 Unknown [id number] 1955 Unknown [id number] 1955 Unknown [id number] 1956 Unknown [id number] 1955 Unknown [id number] 1955 Unknown [id number] 1955 Unknown [id number]. Unknown [id number] Social History Date Type Detail Facility Start: 10-05-2015 End: 03-23-2024 Tobacco smoking status [facility] Never smoker [employer] Phone: Start: 10-05-2015 Alcohol intake Current drinke r of alcohol (finding) [employer] Phone: Sex Assigned At Not on file [employer] Phone: Sex Assigned At Male [facility] Never [facility] Start: 1955 Sex Assigned At Male [facility] Functional Status Date Assessment Result Facility 03-27-2024 Functional Status N/A [facility] 03-23-2024 Functional Status N/A [facility] 02-10-2024 Functional Status N/A [facility] 02-04-2023 Functional Status N/A [facility] 06-07-2022 Functional Status N/A [facility] 04-20-2022 N/A [facility] 04-12-2022 Functional Status N/A [facility] Clinical Notes 04-12-2022 to 03-27-2024 Note Date & Type Note Facility 03-27-2024 Evaluation + Plan note Extrac mckayla from: Title:ANES Post-operative Note---General Author: Ángel Gomez MD Date:03/27/24 Plan Transfer/Discharge: Transfer/Discharge Discharge when meets criteria ( To home ). Extracted from: Title:ANES Pre-operative Note 2022 Author:Ángel Buck Date:03/27/24 Plan [employer] (ASA) physical status classification: Class III. Anesthetic Preoperative Plan: Anesthesia General. Future Appointments Appointment Date:08/17/2024 12:30:00 PM Scheduled Provider:Erin Schuster MD Location:[facility] Appointment Type:URO Office Visit Future Scheduled Tests Radiology* MRI Pelvis (Soft Tissue) w/ + w/o contrast 02/17/24 * MRI Abdomen w/ + w/o Contrast 07/05/24 [facility] 08-23-2024 NoteProgress Note-Physician Patient: PRISCILA DAVIES Age: 69 years Sex: Male : 1955 Associated Diagnoses: None Author: Ángel Gomez MD Postoperative Information Postoperative disposition: Postoperative disposition: To PACU. Optimetrix number: Optimetrix number [id number]. Anesthetic utilized: General. Health Status Allergies: Allergic Reactions (Selected) Severity Not Documented Grass- Unknown. No Known Medication Allergies Physical Examination Vital Signs 03/27/2024 11:20 EDT Heart Rate Monitored 68 bpm Respiratory Rate 12 br/min LOW Systolic Blood Pressure 151 mmHg HI Diastolic Blood Pressure 89 mmHg Blood Pressure Location Left arm Mean Arterial Pressure, Cuff 110 mmHg SpO2 96 % 03/27/2024 11:05 EDT Heart Rate Monitored 73 bpm Respiratory Rate Monitored 15 br/min Systolic Blood Pressure 139 mmHg Diastolic Blood Pressure 93 mmHg HI Blood Pressure Location Left arm Mean Arterial Pressure, Cuff 108 mmHg SpO2 94 % 03/27/2024 11:00 EDT Heart Rate Monitored 74 bpm Respiratory Rate Monitored 14 br/min Systolic Blood Pressure 144 mmHg HI Diastolic Blood Pressure 90 mmHg HI Blood Pressure Location Left arm Mean Arterial Pressure, Cuff 108 mmHg SpO2 94 % 03/27/2024 10:55 EDT Heart Rate Monitored 71 bpm Respiratory Rate Monitored 17 br/min Systolic Blood Pressure 127 mmHg Diastolic Blood Pressure 81 mmHg Blood Pressure Location Left arm Mean Arterial Pressure, Cuff 96 mmHg SpO2 94 % 03/27/2024 10:52 EDT Temperature Temporal Artery 36.5 DegC Heart Rate Monitored 70 bpm Respiratory Rate Monitored 9 br/min Systolic Blood Pressure 120 mmHg Diastolic Blood Pressure 77 mmHg Blood Pressure Location Left arm Mean Arterial Pressure, Cuff 91 mmHg SpO2 94 % Pain Assessment: Controlled. General: Awake, Appropriate. Respiratory: Adequate air exchange. Cardiovascular: Stable. Neurological Assessment Anesthetic outcome No anesthetic complications noted. Adequate pain relief. Review / Management Condition: Stable. Plan Transfer/Discharge: Transfer/Discharge Discharge when meets criteria ( To home ).[facility]Result Comment: Electronically Signed By: Jason CUETO, Ángel Renee\.br\Date and Time Signed: 03/27/24 13:22 EDT 03-27-2024 Hospital Discharge instructions Patient Education 03/27/2024 11:09:18 Colonoscopy, Care After Surgery Salam (CUSTOM) Colonoscopy Care After Surgery Please read the instructions outlined below and refer to this sheet in the next few weeks. These discharge instructions provide you with general information on [facility] Your doctor may also give you specific instructions. While your treatment has been planned according to the most current medical practices available, unavoidable complications occasionally occur. If you have any problems or questions after discharge, please call your doctor. ACTIVITY You may resume your regular activity, but move at a slower pace for the next 24 hours. Take frequent rest periods for the next 24 hours. Walking will help get rid of the air and reduce the bloated feeling in your abdomen (belly). No driving for 24 hours (because of the anesthesia (medicine) used during the test). You may shower. Do not sign any important legal documents or operate any machinery for 24 hours (because of the anesthesia used during the test). NUTRITION Drink plenty of fluids. You may resume your normal diet as instructed by your doctor. Begin with a light meal and progress to your normal diet. Heavy or fried foods are harder to digestand may make you feel nauseated (sick to your stomach). Avoid alcoholic beverages for 24 hours or as instructed. MEDICATIONS You may resume your normal medications unless your doctor tells you otherwise. WHAT YOU CAN EXPECT TODAY Some feelings of bloating in the abdomen. Passage of more gas than usual. Spotting of blood in your stool or on the toilet paper. FOLLOW-UP Your doctor will discuss the results of your test with you. SEEK IMMEDIATE MEDICAL ATTENTION IF: There is more than a spotting of blood in your stool. There is abdominal distention (your abdomen is swollen). There is vomiting. You have a temperature over 101.5 F. There is abdominal pain or discomfort that is severe or gets worse throughout the day. 03/27/2024 11:09:12 Hemorrhoids, Nljj-se-Qdcf Hemorrhoids Hemorrhoids are swollen veins that may develop: In the butt (rectum). These are called internal hemorrhoids. Around the opening of the butt (anus). These are called external hemorrhoids. Hemorrhoids can cause pain, itching, or bleeding. Most of the time, they do not cause serious problems. They usually get better with diet changes, lifestyle changes, and other home treatments. What are the causes? This condition may be caused by: Having trouble pooping (constipation). Pushing hard (straining) to poop. Watery poop (diarrhea). . Being very overweight (obese). Sitting for long periods of time. Heavy lifting or other activity that causes you to strain. Anal sex. Riding a bike for a long period of time. What are the signs or symptoms? Symptoms of this condition include: Pain. Itching or soreness in the butt. Bleeding from the butt. Leaking poop. Swelling in the area. One or more lumps around the opening of your butt. How is this diagnosed? A doctor can often diagnose this condition by looking at the affected area. The doctor may also: Do an exam that involves feeling the area with a gloved hand (digital rectal exam). Examine the area inside your butt using a small tube (anoscope). Order blood tests. This may be done if you have lost a lot of blood. Have you get a test that involves looking inside the colon using a flexible tube with a camera on the end (sigmoidoscopy or colonoscopy). How is this treated? This condition can usually be treated at home. Your doctor may tell you to change what you eat, make lifestyle changes, or try home treatments. If these do not help, procedures can be done to remove the hemorrhoids or make them smaller. These may involve: Placing rubber bands at the base of the hemorrhoids to cut off their blood supply. Injecting medicine into the hemorrhoids to shrink them. Shining a type of light energy onto the hemorrhoids to cause them to fall off. Doing surgery to remove the hemorrhoids or cut off their blood supply. Follow these instructions at home: Eating and drinking Eat foods that have a lot of fiber in them. These include whole grains, beans, nuts, fruits, and vegetables. Ask your doctor about taking products that have added fiber (fibersupplements). Reduce the amount of fat in your diet. You can do this by: ?Eating low-fat dairy products. ?Eating less red meat. ?Avoiding processed foods. Drink enough fluid to keep your pee (urine) pale yellow. Managing pain and swelling Take a warm-water bath (sitz bath) for 20 minutes to ease pain. Do this 3 4 times a day. You may dothis in a bathtub or using a portable sitz bath that fits over the toilet. If told, put ice on the painful area. It may be helpful to use ice between your warm baths. ?Put ice in a plastic bag. ?Place a towel between your skin and the bag. ?Leave the ice on for 20 minutes, 2 3 times a day. General instructions Take dsro-jsj-vckofic and prescription medicines only as told by your doctor. ?Medicated creams and medicines may be used as told. Exercise often. Ask your doctor how much and what kind of exercise is best for you. Go to the bathroom when you have the urge to poop. Do not wait. Avoid pushing too hard when you poop. Keep your butt dry and clean. Use wet toilet paper or moist towelettes after pooping. Do not sit on the toilet for a long time. Keep all follow-up visits as told by your doctor. This is important. Contact a doctor if you: Have pain and swelling that do not get better with treatment or medicine. Have trouble pooping. Cannot poop. Have pain or swelling outside the area of the hemorrhoids. Get help right away if you have: Bleeding that will not stop. Summary Hemorrhoids are swollen veins in the butt or around the opening of the butt. They can cause pain, itching, or bleeding. Eat foods that have a lot of fiber in them. These include whole grains, beans, nuts, fruits, and vegetables. Take a warm-water bath (sitz bath) for 20 minutes to ease pain. Do this 3 4 times a day. This information is not intended to replace advice given to you by your health care provider. Make sure you discuss any questions you have with your health care provider. Document Revised: 01/31/2022 Document Reviewed: 01/31/2022 [employer] Patient Education 2022 [employer]. 03/27/2024 11:08:51 Diverticulosis Diverticulosis Diverticulosis is a condition that develops when small pouches (diverticula) form in the wall of the large intestine (colon). The colon is where water is absorbed and stool (feces) is formed. The pouches form when the inside layer of the colon pushes through weak spots in the outer layers of the colon. You may have a few pouches or many of them. The pouches usually do not cause problems unless they become inflamed or infected. When this happens, the condition is called diverticulitis. What are the causes? The cause of this condition is not known. What increases the risk? The following factors may make you more likely to develop this condition: Being older than age 60. Your risk for this condition increases with age. Diverticulosis is rare among people younger than age 30. By age 80, many people have it. Eating a low-fiber diet. Having frequent constipation. Being overweight. Not getting enough exercise. Smoking. Taking frva-mdl-oeifxoo pain medicines, like aspirin and ibuprofen. Having a family history of diverticulosis. What are the signs or symptoms? In most people, there are no symptoms of this condition. If you do have symptoms, they may include: Bloating. Cramps in the abdomen. Constipation or diarrhea. Pain in the lower left side of the abdomen. How is this diagnosed? Because diverticulosis usually has no symptoms, it is most often diagnosed during an exam for othercolon problems. The condition may be diagnosed by: Using a flexible scope to examine the colon (colonoscopy). Taking an X-ray of the colon after dye has been put into the colon (barium enema). Having a CT scan. How is this treated? You may not need treatment for this condition. Your health care provider may recommend treatment toprevent problems. You may need treatment if you have symptoms or if you previously had diverticulitis. Treatment may include: Eating a high-fiber diet. Taking a fiber supplement. Taking a live bacteria supplement (probiotic). Taking medicine to relax your colon. Follow these instructions at home: Medicines Take jlee-pfz-akicikb and prescription medicines only as told by your health care provider. If told by your health care provider, take a fiber supplement or probiotic. Constipation prevention Your condition may cause constipation. To prevent or treat constipation, you may need to: Drink enough fluid to keep your urine pale yellow. Take sfgw-bet-mitnlsh or prescription medicines. Eat foods that are high in fiber, such as beans, whole grains, and fresh fruits and vegetables. Limit foods that are high in fat and processed sugars, such as fried or sweet foods. General instructions Try not to strain when you have a bowel movement. Keep all follow-up visits as told by your health care provider. This is important. Contact a health care provider if you: Have pain in your abdomen. Have bloating. Have cramps. Have not had a bowel movement in 3 days. Get help right away if: Your pain gets worse. Your bloating becomes very bad. You have a fever or chills, and your symptoms suddenly get worse. You vomit. You have bowel movements that are bloody or black. You have bleeding from your rectum. Summary Diverticulosis is a condition that develops when small pouches (diverticula) form in the wall of the large intestine (colon). You may have a few pouches or many of them. This condition is most often diagnosed during an exam for other colon problems. Treatment may include increasing the fiber in your diet, taking supplements, or taking medicines. This information is not intended to replace advice given to you by your health care provider. Make sure you discuss any questions you have with your health care provider. Document Revised: 2020 Document Reviewed: 2020 [employer] Patient Education 2022 [employer] 03/27/2024 11:08:43 Colon Polyps Colon Polyps Colon polyps are tissue growths inside the colon, which is part of the large intestine. They are one of the types of polyps that can grow in the body. A polyp may be a round bump or a mushroom-shapedgrowth. You could have one polyp or more than one. Most colon polyps are noncancerous (benign). However, some colon polyps can become cancerous over time. Finding and removing the polyps early can help prevent this. What are the causes? The exact cause of colon polyps is not known. What increases the risk? The following factors may make you more likely to develop this condition: Having a family history of colorectal cancer or colon polyps. Being older than 45 years of age. Being younger than 45 years of age and having a significant family history of colorectal cancer or colon polyps or a genetic condition that puts you at higher risk of getting colon polyps. Having inflammatory bowel disease, such as ulcerative colitis or Crohn's disease. Having certain conditions passed from parent to child (hereditary conditions), such as: ?Familial adenomatous polyposis (FAP). ?Sharp syndrome. ?Turcot syndrome. ?Peutz Jeghers syndrome. ?MUTYH-associated polyposis (MAP). Being overweight. Certain lifestyle factors. These include smoking cigarettes, drinking too much alcohol, not gettingenough exercise, and eating a diet that is high in fat and red meat and low in fiber. Having had childhood cancer that was treated with radiation of the abdomen. What are the signs or symptoms? Many times, there are no symptoms. If you have symptoms, they may include: Blood coming from the rectum during a bowel movement. Blood in the stool (feces). The blood may be bright red or very dark in color. Pain in the abdomen. A change in bowel habits, such as constipation or diarrhea. How is this diagnosed? This condition is diagnosed with a colonoscopy. This is a procedure in which a lighted, flexible scope is inserted into the opening between the buttocks (anus) and then passed into the colon to examine the area. Polyps are sometimes found when a colonoscopy is done as part of routine cancer screening tests. How is this treated? This condition is treated by removing any polyps that are found. Most polyps can be removed during a colonoscopy. Those polyps will then be tested for cancer. Additional treatment may be needed depending on the results of testing. Follow these instructions at home: Eating and drinking Eat foods that are high in fiber, such as fruits, vegetables, and whole grains. Eat foods that are high in calcium and vitamin D, such as milk, cheese, yogurt, eggs, liver, fish, and broccoli. Limit foods that are high in fat, such as fried foods and desserts. Limit the amount of red meat, precooked or cured meat, or other processed meat that you eat, such as hot dogs, sausages, silva, or meat loaves. Limit sugary drinks. Lifestyle Maintain a healthy weight, or lose weight if recommended by your health care provider. Exercise every day or as told by your health care provider. Do not use any products that contain nicotine or tobacco, such as cigarettes, e- cigarettes, and chewing tobacco. If you need help quitting, ask your health care provider. Do not drink alcohol if: ?Your health care provider tells you not to drink. ?You are , may be , or are planning to become . If you drink alcohol: ?Limit how much you use to: ?0 1 drink a day for women. ?0 2 drinks a day for men. ?Know how much alcohol is in your drink. In the [place] one drink equals one 12 oz bottle of beer (355 mL), one 5 oz glass of wine (148 mL), or one 1 oz glass of hard liquor (44 mL). General instructions Take pltx-xde-ygunhgn and prescription medicines only as told by your health care provider. Keep all follow-up visits. This is important. This includes having regularly scheduled colonoscopies. Talk to your health care provider about when you need a colonoscopy. Contact a health care provider if: You have new or worsening bleeding during a bowel movement. You have new or increased blood in your stool. You have a change in bowel habits. You lose weight for no known reason. Summary Colon polyps are tissue growths inside the colon, which is part of the large intestine. They are one type of polyp that can grow in the body. Most colon polyps are noncancerous (benign), but some can become cancerous over time. This condition is diagnosed with a colonoscopy. This condition is treated by removing any polyps that are found. Most polyps can be removed during a colonoscopy. This information is not intended to replace advice given to you by your health care provider. Make sure you discuss any questions you have with your health care provider. Document Revised: 11/09/2020 Document Reviewed: 11/09/2020 [employer] Patient Education 2022 [employer]. Follow Up Care 03/23/2024 11:02:34 With:Galina CUETO, TAYLOR Abdalla, [facility] Address: [address], [address] [phone] When: Unknown Comments:Office will call to schedule follow up appointment and/or review any pending biopsy resultsCall forany problems. [facility] 08-23-2024 NoteProgress Note-Physician Patient: PRISCILA DAVIES Age: 69 years Sex: Male : 1955 Associated Diagnoses: None Author: Ángel Gomez MD Preoperative Information Anesthesia Preop Info: Time patient last ate or drank 03/27/2024 00:00:00. Anesthesia history: Patient history: None. Family history+: None. Informed consent: Signed by patient. Re-evaluation prior to induction: Initial evaluation reviewed: No significant change. Review of Systems Eye Ear/Nose/Mouth/Throat Respiratory: No shortness of breath, No cough. Cardiovascular: Negative, No chest pain. Gastrointestinal: No heartburn. Musculoskeletal Neurologic Health Status Allergies: Allergic Reactions (Selected) Severity Not Documented Grass- Unknown. No Known Medication Allergies, Allergies (2) Active Severity Reaction No Known Medication Allergies None Documented Grass Unknown Current medications: (Selected) Inpatient Medications Ordered Sodium Chloride 0.9% IV Magui 1000 mL 1,000 mL: 1,000 mL, IV, 20 mL/hr, Routine, Start date 03/27/24 6:59:00 EDT, 50 hour(s), Total volume (mL): 1,000, 123.7 kg, 2.5, m2 Prescriptions Prescribed fluticasone 0.05 mg/inh Nasal [place]: 2 spray(s), Nasal, Daily Congestion, 16 gram, Refill(s) 2, each nostril, [facility], 182, cm, 10/15/19 13:05:00 EDT, Height/Length Measured, 119.1, kg, 10/15/19 13:05:00 EDT, Weight Measured loratadine 10 mg Tab: 10 mg = 1 tab(s), Oral, Daily, # 30 tab(s), Refills(s) 2, Pharmacy: [facility], 182, cm, 10/15/19 13:05:00 EDT, Height/Length Measured, 119.1, kg, 10/15/19 13:05:00 EDT, Weight Measured Documented Medications Documented atorvastatin 10 mg Tab: 10 mg = 1 tab(s), Oral, Daily, Refills(s) 0, High cholesterol lisinopril 5 mg Tab: 5 mg, Oral, BID, Refills(s) 0, High blood pressure, Home Medications (4) Active atorvastatin 10 mg Tab 10 mg = 1 tab(s), Oral, Daily fluticasone 0.05 mg/inh Nasal [place] 2 spray(s), PRN, Nasal, Daily lisinopril 5 mg Tab 5 mg, Oral, BID loratadine 10 mg Tab 10 mg = 1 tab(s), Oral, Daily , Medications (1) Active Scheduled: (0) Continuous: (1) Sodium Chloride 0.9% 1,000 mL 1,000 mL, IV, 20 mL/hr PRN: (0) Problem list: All Problems Allergic rhinitis, seasonal / SNOMED CT 404488418 / Confirmed BMI 35.0-35.9,adult / SNOMED CT 328219734 / Confirmed Chronic pain of right knee / SNOMED CT 58621647 / Confirmed Concussion with no loss of consciousness / SNOMED CT 449591136 / Confirmed Edema of left upper eyelid / SNOMED CT 3729749887 / Confirmed Elevated PSA / SNOMED CT 8560677554 / Confirmed Encounter for staple removal / SNOMED CT 891678054 / Confirmed History of colon polyps / SNOMED CT 9466245491 / Confirmed HTN (hypertension) / SNOMED CT 4704936069 / Confirmed Laceration of occipital region of scalp / SNOMED CT 871315298 / Confirmed Mass of right kidney / SNOMED CT [id number] / Confirmed Obesity due to excess calories / SNOMED CT 6619437731 / Confirmed Renal cyst / SNOMED CT 3311335819 / Confirmed Renal mass / SNOMED CT 158850023 / Confirmed Screening PSA (prostate specific antigen) / SNOMED CT 233409388 / Confirmed Spasm of back muscles / SNOMED CT 025196747 / Confirmed Resolved: Chicken pox / SNOMED CT 51350513 Resolved: Measles / SNOMED CT 73539931 Resolved: Mumps / SNOMED CT 67833058 Canceled: BMI 36.0-36.9,adult / SNOMED CT 938698496 Canceled: Body mass index (bmi) 36.0-36.9, adult / SNOMED CT 769154562 Canceled: Closed head injury / SNOMED CT 5663635248 Canceled: Limited joint range of motion (ROM) / SNOMED CT 771417835 Canceled: Morbid obesity / SNOMED CT 898314609 Canceled: Obesity 04-FEB-2014 12:37:00<$> / SNOMED CT [id number] Canceled: Other acute sinusitis / SNOMED CT 85418804 Canceled: Sunburn of second degree / SNOMED CT 754151962, Active Problems (16) Allergic rhinitis, seasonal BMI 35.0-35.9,adult Chronic pain of right knee Concussion with no loss of consciousness Edema of left upper eyelid Elevated PSA Encounter for staple removal History of colon polyps HTN (hypertension) Laceration of occipital region of scalp Mass of right kidney Obesity due to excess calories Renal cyst Renal mass Screening PSA (prostate specific antigen) Spasm of back muscles Histories Past Medical History: Resolved Chicken pox (16104564): Resolved. Measles (61097503): Resolved. Mumps (88873158): Resolved. Family History: Entire family history is negative. Procedure history: Colonoscopy ([id number]) on 03/27/2024 at 69 Years. Colonoscopy ([id number]) on 03/11/2019 at 64 Years. Eye surgery ([id number]). Social History Social & Psychosocial Habits Alcohol 03/23/2024 Use: Current Comment: rarely - 03/02/2019 09:27 - Carlos Tour ConsultantMary Comment: denies - 06/01/2021 13:13 - Angelica Girard RN Other Comment: Caffeine- 3 cups daily - 03/02/2019 (more content not included)... [facility] [place]Result Comment: Electronically Signed By: Jason CUETO, Ángel Renee\.br\Date and Time Signed: 03/27/24 11:32 EDT 03-27-2024 NotePatient Education - Text Colonoscopy Care After Surgery Please read the instructions outlined below and refer to this sheet in the next few weeks. These discharge instructions provide you with general information on [facility] Your doctor may also give you specific instructions. While your treatment has been planned according to the most current medical practices available, unavoidable complications occasionally occur. If you have any problems or questions after discharge, please call your doctor. ACTIVITY You may resume your regular activity, but move at a slower pace for the next 24 hours. Take frequent rest periods for the next 24 hours. Walking will help get rid of the air and reduce the bloated feeling in your abdomen (belly). No driving for 24 hours (because of the anesthesia (medicine) used during the test). You may shower. Do not sign any important legal documents or operate any machinery for 24 hours (because of the anesthesia used during the test). NUTRITION Drink plenty of fluids. You may resume your normal diet as instructed by your doctor. Begin with a light meal and progress to your normal diet. Heavy or fried foods are harder to digestand may make you feel nauseated (sick to your stomach). Avoid alcoholic beverages for 24 hours or as instructed. MEDICATIONS You may resume your normal medications unless your doctor tells you otherwise. WHAT YOU CAN EXPECT TODAY Some feelings of bloating in the abdomen. Passage of more gas than usual. Spotting of blood in your stool or on the toilet paper. FOLLOW-UP Your doctor will discuss the results of your test with you. SEEK IMMEDIATE MEDICAL ATTENTION IF: There is more than a spotting of blood in your stool. There is abdominal distention (your abdomen is swollen). There is vomiting. You have a temperature over 101.5 F. There is abdominal pain or discomfort that is severe or gets worse throughout the day. Gastroenterology Hemorrhoids Hemorrhoids are swollen veins that may develop: ? In the butt (rectum). These are called internal hemorrhoids. ? Around the opening of the butt (anus). These are called external hemorrhoids. Hemorrhoids can cause pain, itching, or bleeding. Most of the time, they do not cause serious problems. They usually get better with diet changes, lifestyle changes, and other home treatments. What are the causes? This condition may be caused by: ? Having trouble pooping (constipation). ? Pushing hard (straining) to poop. ? Watery poop (diarrhea). ? . ? Being very overweight (obese). ? Sitting for long periods of time. ? Heavy lifting or other activity that causes you to strain. ? Anal sex. ? Riding a bike for a long period of time. What are the signs or symptoms? Symptoms of this condition include: ? Pain. ? Itching or soreness in the butt. ? Bleeding from the butt. ? Leaking poop. ? Swelling in the area. ? One or more lumps around the opening of your butt. How is this diagnosed? A doctor can often diagnose this condition by looking at the affected area. The doctor may also: ? Do an exam that involves feeling the area with a gloved hand (digital rectal exam). ? Examine the area inside your butt using a small tube (anoscope). ? Order blood tests. This may be done if you have lost a lot of blood. ? Have you get a test that involves looking inside the colon using a flexible tube with a camera onthe end (sigmoidoscopy or colonoscopy). How is this treated? This condition can usually be treated at home. Your doctor may tell you to change what you eat, make lifestyle changes, or try home treatments. If these do not help, procedures can be done to remove the hemorrhoids or make them smaller. These may involve: ? Placing rubber bands at the base of the hemorrhoids to cut off their blood supply. ? Injecting medicine into the hemorrhoids to shrink them. ? Shining a type of light energy onto the hemorrhoids to cause them to fall off. ? Doing surgery to remove the hemorrhoids or cut off their blood supply. Follow these instructions at home: Eating and drinking ? Eat foods that have a lot of fiber in them. These include whole grains, beans, nuts, fruits, and vegetables. ? Ask your doctor about taking products that have added fiber (fibersupplements). ? Reduce the amount of fat in your diet. You can do this by: ? Eating low-fat dairy products. ? Eating less red meat. ? Avoiding processed foods. ? Drink enough fluid to keep your pee (urine) pale yellow. Managing pain and swelling ? Take a warm-water bath (sitz bath) for 20 minutes to ease pain. Do this 3?4 times a day. You may do this in a bathtub or using a portable sitz bath that fits over the toilet. ? If told, put ice on the painful area. It may be helpful to use ice between your warm b (more content not included)...[facility] [place] NoteEndoscopic Procedure Report - Other Patient: PRISCILA DAVIES Age: 69 years Sex: Male : 1955 Associated Diagnoses: None Author: Margot Mojica MD Pre-Procedure Procedure Date 03/27/2024 10:48:00 . Procedure Type: Colonoscopy with biopsy. Procedure provider Performed by Margot Mojica MD. Current history and physical Reviewed. Colonoscopy ([id number]) on 03/11/2019 at 64 Years. Eye surgery ([id number]).. Past Medical History Resolved Chicken pox (62519967): Resolved. Measles (13051208): Resolved. Mumps (16889683): Resolved.. Family History Entire family history is negative.. Procedure History Colonoscopy ([id number]) on 03/11/2019 at 64 Years. Eye surgery ([id number]).. Colorectal neoplasm risk assessment High risk Previous history of polyps. . Informed Consent After discussing the rationale, risks and benefits, and alternatives to this procedure, the patient provided signed consent for the procedure. Pre-procedure diagnosis: History of colon polyps. Medications (Selected) Inpatient Medications Ordered Sodium Chloride 0.9% IV Magui 1000 mL 1,000 mL: 1,000 mL, IV, 20 mL/hr, Routine, Start date 03/27/24 6:59:00 EDT, 50 hour(s), Total volume (mL): 1,000, 123.7 kg, 2.5, m2 Prescriptions Prescribed fluticasone 0.05 mg/inh Nasal [place]: 2 spray(s), Nasal, Daily Congestion, 16 gram, Refill(s) 2, each nostril, [facility], 182, cm, 10/15/19 13:05:00 EDT, Height/Length Measured, 119.1, kg, 10/15/19 13:05:00 EDT, Weight Measured loratadine 10 mg Tab: 10 mg = 1 tab(s), Oral, Daily, # 30 tab(s), Refills(s) 2, Pharmacy: [facility], 182, cm, 10/15/19 13:05:00 EDT, Height/Length Measured, 119.1, kg, 10/15/19 13:05:00 EDT, Weight Measured Documented Medications Documented atorvastatin 10 mg Tab: 10 mg = 1 tab(s), Oral, Daily, Refills(s) 0, High cholesterol lisinopril 5 mg Tab: 5 mg, Oral, BID, Refills(s) 0, High blood pressure ASA Classification: Class II. . Monitoring: See anesthesia record. . Procedure The procedure was performed in the hospital. See anesthesia record for sedation given during procedure. The patient was positioned starting in the left lateral decubitus position. Endoscope type usedwas an adult-size. The endoscope was lubricated then introduced through the anus. The scope was advanced to the cecum. No difficulties encountered during the procedure. The bowel preparation quality was adequate (see polyps greater than or equal to 6 millimeters). The patient tolerated the procedure well. Time to Cecum: 4 min Withdrawal time 8 min Findings 1. Small internal hemorrhoids 2. Moderate sigmoid alkalosis 3. 2 mm sessile polyp in the cecum, resected with cold biopsy forceps and retrieved Images Procedure images: [id number]_hd_video__[id number].jpg Rec1_hd_video__[id number].jpg Rec1_hd_video__[id number].jpg Rec1_hd_video__[id number].jpg Rec1_hd_video__[id number].jpg Rec1_hd_video__[id number].jpg Rec1_hd_video__[id number].jpg Rec1_hd_video__[id number].jpg Rec1_hd_video__[id number].jpg . Post-Procedure Complications: none. Estimated blood loss: Minimal. Specimens: sent to pathology. Devices/ implants: none left in place. Impression and Plan 1. Small internal hemorrhoids 2. Moderate sigmoid alkalosis 3. 2 mm sessile polyp in the cecum, resected with cold biopsy forceps and retrieved Recommendations: Repeat colonoscopy:: In 5 years. Follow-up:: in clinic for 1-2 weeks when pathology is available. Diet:: Previous. Medication resumption:: Continue current medications, Avoid NSAIDs. Return to activities:: After 24 hours. Education and Follow-up: Counseled: Patient, Family. Repeat endoscopy in 7-10 years based on pathology (not 5 years)[facility] [place]:Result Comment: Electronically Signed By: Galina CUETO, Margot Escobedo\.br\Date and Time Signed: 03/27/24 10:49 EDTOther Comment: Missing Attachment - attachment storage system not supported [id number] Can be viewed in source system Missing Attachment - attachment storage system not supported [id number] Can be viewed in source systemMissing Attachment - attachment storage system not supported [id number] Can be viewed in source systemMissing Attachment - attachment storage system not supported [id number] Can be viewed in source systemMissing Attachment - attachment storage system not supported [id number] Can be viewed in source systemMissing Attachment - attachment storage system not supported [id number] Can be viewed in source systemMissing Attachment - attachment storage system not supported [id number] Can be viewed in source systemMissing Attachment - attachment storage system not supported [id number] Can be viewed in source system Missing Attachment - attachment storage system not supported [id number] Can be viewed in source [id number] Hospital Discharge instructions Patient Education 02/10/2024 13:43:35 Prostate Cancer Screening Prostate Cancer Screening Prostate cancer screening is testing that is done to check for the presence of prostate cancer in men. The prostate gland is a walnut-sized gland that is located below the bladder and in front of therectum in males. The function of the prostate is to add fluid to semen during ejaculation. Prostatecancer is one of the most common types of cancer in men. Who should have prostate cancer screening? Screening recommendations vary based on age and other risk factors, as well as between the professional organizations who make the recommendations. In general, screening is recommended if: You are age 50 to 70 and have an average risk for prostate cancer. You should talk with your healthcare provider about your need for screening and how often screening should be done. Because most prostate cancers are slow growing and will not cause , screening in this age group is generally reserved for men who have a 10- to 15-year life expectancy. You are younger than age 50, and you have these risk factors: ?Having a father, brother, or uncle who has been diagnosed with prostate cancer. The risk is higherif your family member's cancer occurred at an early age or if you have multiple family members withprostate cancer at an early age. ?Being a male who is Black or is of [place] or sub-Saharan descent. In general, screening is not recommended if: You are younger than age 40. You are between the ages of 40 and 49 and you have no risk factors. You are 70 years of age or older. At this age, the risks that screening can cause are greater than the benefits that it may provide. If you are at high risk for prostate cancer, your health care provider may recommend that you have screenings more often or that you start screening at a younger age. How is screening for prostate cancer done? The recommended prostate cancer screening test is a blood test called the prostate-specific antigen(PSA) test. PSA is a protein that is made in the prostate. As you age, your prostate naturally produces more PSA. Abnormally high PSA levels may be caused by: Prostate cancer. An enlarged prostate that is not caused by cancer (benign prostatic hyperplasia, or BPH). This condition is very common in older men. A prostate gland infection (prostatitis) or urinary tract infection. Certain medicines such as male hormones (like testosterone) or other medicines that raise testosterone levels. A rectal exam may be done as part of prostate cancer screening to help provide information about the size of your prostate gland. When a rectal exam is performed, it should be done after the PSA level is drawn to avoid any effect on the results. Depending on the PSA results, you may need more tests, such as: A physical exam to check the size of your prostate gland, if not done as part of screening. Blood and imaging tests. A procedure to remove tissue samples from your prostate gland for testing (biopsy). This is the only way to know for certain if you have prostate cancer. What are the benefits of prostate cancer screening? Screening can help to identify cancer at an early stage, before symptoms start and when the cancer can be treated more easily. There is a small chance that screening may lower your risk of dying from prostate cancer. The chance is small because prostate cancer is a slow-growing cancer, and most men with prostate cancer from a different cause. What are the risks of prostate cancer screening? The main risk of prostate cancer screening is diagnosing and treating prostate cancer that would never have caused any symptoms or problems. This is called overdiagnosisand overtreatment. PSA screening cannot tell you if your PSA is high due to cancer or a different cause. A prostate biopsy is the only procedure to diagnose prostate cancer. Even the results of a biopsy may not tell you if your cancer needs to be treated. Slow-growing prostate cancer may not need any treatment other than monitoring, so diagnosing and treating it may cause unnecessary stress or other side effects. Questions to ask your health care provider When should I start prostate cancer screening? What is my risk for prostate cancer? How often do I need screening? What type of screening tests do I need? How do I get my test results? What do my results mean? Do I need treatment? Where to find more information [employer]: www.cancer.org [employer]: www.auanet.org Contact a health care provider if: You have difficulty urinating. You have pain when you urinate or ejaculate. You have blood in your urine or semen. You have pain in your back or in the area of your prostate. Summary Prostate cancer is a common type of cancer in men. The prostate gland is located below the bladder and in front of the rectum. This gland adds fluid to semen during ejaculation. Prostate cancer screening may identify cancer at an early stage, when the cancer can be treated more easily and is less likely to have spread to other areas of the body. The prostate-specific antigen (PSA) test is the recommended screening test for prostate cancer, butit has associated risks. Discuss the risks and benefits of prostate cancer screening with your health care provider. If you are age 70 or older, the risks that screening can cause are greater than the benefits that it may provide. This information is not intended to replace advice given to you by your health care provider. Make sure you discuss any questions you have with your health care provider. Document Revised: 01/15/2022 Document Reviewed: 01/15/2022 [employer] Patient Education 2022 [employer]. Follow Up Care 02/04/2023 16:21:40 With:Landen CUETO, ROBERTO Cedeño, URO Address: When: Unknown [facility] 07-08-2024 NotePatient Education Oncology Prostate Cancer Screening Prostate cancer screening is testing that is done to check for the presence of prostate cancer in men. The prostate gland is a walnut-sized gland that is located below the bladder and in front of therectum in males. The function of the prostate is to add fluid to semen during ejaculation. Prostatecancer is one of the most common types of cancer in men. Who should have prostate cancer screening? Screening recommendations vary based on age and other risk factors, as well as between the professional organizations who make the recommendations. In general, screening is recommended if: ? You are age 50 to 70 and have an average risk for prostate cancer. You should talk with your health care provider about your need for screening and how often screening should be done. Because most prostate cancers are slow growing and will not cause , screening in this age group is generallyreserved for men who have a 10- to 15-year life expectancy. ? You are younger than age 50, and you have these risk factors: ? Having a father, brother, or uncle who has been diagnosed with prostate cancer. The risk is higher if your family member's cancer occurred at an early age or if you have multiple family members with prostate cancer at an early age. ? Being a male who is Black or is of [place] or sub-Saharan descent. In general, screening is not recommended if: ? You are younger than age 40. ? You are between the ages of 40 and 49 and you have no risk factors. ? You are 70 years of age or older. At this age, the risks that screening can cause are greater than the benefits that it may provide. If you are at high risk for prostate cancer, your health care provider may recommend that you have screenings more often or that you start screening at a younger age. How is screening for prostate cancer done? The recommended prostate cancer screening test is a blood test called the prostate-specific antigen(PSA) test. PSA is a protein that is made in the prostate. As you age, your prostate naturally produces more PSA. Abnormally high PSA levels may be caused by: ? Prostate cancer. ? An enlarged prostate that is not caused by cancer (benign prostatic hyperplasia, or BPH). This condition is very common in older men. ? A prostate gland infection (prostatitis) or urinary tract infection. ? Certain medicines such as male hormones (like testosterone) or other medicines that raise testosterone levels. A rectal exam may be done as part of prostate cancer screening to help provide information about the size of your prostate gland. When a rectal exam is performed, it should be done after the PSA level is drawn to avoid any effect on the results. Depending on the PSA results, you may need more tests, such as: ? A physical exam to check the size of your prostate gland, if not done as part of screening. ? Blood and imaging tests. ? A procedure to remove tissue samples from your prostate gland for testing (biopsy). This is the only way to know for certain if you have prostate cancer. What are the benefits of prostate cancer screening? ? Screening can help to identify cancer at an early stage, before symptoms start and when the cancer can be treated more easily. ? There is a small chance that screening may lower your risk of dying from prostate cancer. The chance is small because prostate cancer is a slow-growing cancer, and most men with prostate cancer diefrom a different cause. What are the risks of prostate cancer screening? The main risk of prostate cancer screening is diagnosing and treating prostate cancer that would never have caused any symptoms or problems. This is called overdiagnosisand overtreatment. PSA screening cannot tell you if your PSA is high due to cancer or a different cause. A prostate biopsy is the only procedure to diagnose prostate cancer. Even the results of a biopsy may not tell you if your cancer needs to be treated. Slow-growing prostate cancer may not need any treatment other than monitoring, so diagnosing and treating it may cause unnecessary stress or other side effects. Questions to ask your health care provider ? When should I start prostate cancer screening? ? What is my risk for prostate cancer? ? How often do I need screening? ? What type of screening tests do I need? ? How do I get my test results? ? What do my results mean? ? Do I need treatment? Where to find more information ? The [employer]: www.cancer.org ? [employer]: www.auanet.org Contact a health care provider if: ? You have difficulty urinating. ? You have pain when you urinate or ejaculate. ? You have blood in your urine or semen. ? You have pain in your back or in the area of your prostate. Summary ? Prostate cancer is a common type of cancer in men. The prostate gland is located below the bladder and in front of the rectum. (more content not included)...[facility] [place]07-[facility]23 Hospital Discharge instructions Patient Education 02/04/2023 16:24:45 Renal Mass Renal Mass A renal mass is an abnormal growth in the kidney. It may be found while performing an MRI, CT scan,or ultrasound to evaluate other problems of the abdomen. A renal mass that is cancerous (malignant)may grow or spread quickly. Others are not cancerous (benign). Renal masses include: Tumors. These may be malignant or benign. ?The most common type of kidney cancer in adults is renal cell carcinoma. In children, the most common type of kidney cancer is Wilms tumor. ?The most common benign tumors of the kidney include renal adenomas, oncocytomas, and angiomyolipoma (AML). Cysts. These are fluid-filled sacs that form on or in the kidney. What are the causes? Certain types of cancers, infections, or injuries can cause a renal mass. It is not always known what causes a cyst to develop in or on the kidney. What are the signs or symptoms? Often, a renal mass does not cause any signs or symptoms; most kidney cysts do not cause symptoms. How is this diagnosed? Your health care provider may recommend tests to diagnose the cause of your renal mass. These testsmay be done if a renal mass is found: Physical exam. Blood tests. Urine tests. Imaging tests, such as ultrasound, CT scan, or MRI. Biopsy. This is a small sample that is removed from the renal mass and tested in a lab. The exact tests and how often they are done will depend on: The size and appearance of the renal mass. Risk factors or medical conditions that increase your risk for problems. Any symptoms associated with the renal mass, or concerns that you have about it. Tests and physical exams may be done once, or they may be done regularly for a period of time. Tests and exams that are done regularly will help monitor whether the mass is growing and beginning to cause problems. How is this treated? Treatment is not always needed for this condition. Your health care provider may recommend careful monitoring and regular tests and exams. Treatment will depend on the cause of the mass. Treatment for a cancerous renal mass may include surgical removal, chemotherapy, radiation, or immunotherapy. Most kidney cysts do not need to be treated. Follow these instructions at home: What you need to do at home will depend on the cause of the mass. Follow the instructions that yourhealth care provider gives to you. In general: Take udkv-aoh-kowsfww and prescription medicines only as told by your health care provider. If you were prescribed an antibiotic medicine, take it as told by your health care provider. Do notstop taking the antibiotic even if you start to feel better. Follow any restrictions that are given to you by your health care provider. Keep all follow-up visits. This is important. ?You may need to see your health care provider once or twice a year to have CT scans and ultrasounds. These tests will show if your renal mass has changed or grown. Contact a health care provider if you: Have pain in your side or back (flank pain). Have a fever. Feel full soon after eating. Have pain or swelling in the abdomen. Lose weight. Get help right away if: Your pain gets worse. There is blood in your urine. You cannot urinate. You have chest pain. You have trouble breathing. These symptoms may represent a serious problem that is an emergency. Do not wait to see if the symptoms will go away. Get medical help right away. Call your local emergency services (911 in the [place] Summary A renal mass is an abnormal growth in the kidney. It may be cancerous (malignant) and grow or spread quickly, or it may not be cancerous (benign). Renal masses often do not have any signs or symptoms. Renal masses may be found while performing an MRI, CT scan, or ultrasound for other problems of theabdomen. Your health care provider may recommend that you have tests to diagnose the cause of your renal mass. These may include a physical exam, blood tests, urine tests, imaging, or a biopsy. Treatment is not always needed for this condition. Careful monitoring may be recommended. This information is not intended to replace advice given to you by your health care provider. Make sure you discuss any questions you have with your health care provider. Document Revised: 01/16/2021 Document Reviewed: 01/16/2021 [employer] Patient Education 2022 [employer]. Follow Up Care 06/07/2022 08:14:51 With:Landen CUETO, ROBERTO Cedeño, URO Address: [address] [place] [address] [phone] When:Within 1 Year(s) Comments:PSA and MRI Abd w/wo [facility] 11-03-2022 Hospital Discharge instructions Patient Education 06/07/2022 08:11:17 Prostate Cancer Screening Prostate Cancer Screening The prostate is a walnut-sized gland that is located below the bladder and in front of the rectum in males. The function of the prostate (prostate gland) is to add fluid to semen during ejaculation. Prostate cancer is the second most common type of cancer in men. A screening test for cancer is a test that is done before cancer symptoms start. Screening can helpto identify cancer at an early stage, when the cancer can be treated more easily. The recommended prostate cancer screening test is a blood test called the prostate-specific antigen (PSA) test. PSA is a protein that is made in the prostate. As you age, your prostate naturally produces more PSA. Abnormally high PSA levels may be caused by: Prostate cancer. An enlarged prostate that is not caused by cancer (benign prostatic hyperplasia, BPH). This condition is very common in older men. A prostate gland infection (prostatitis). Medicines to assist with hair growth, such as finasteride. Depending on the PSA results, you may need more tests, such as: A physical exam to check the size of your prostate gland. Blood and imaging tests. A procedure to remove tissue samples from your prostate gland for testing (biopsy). Who should have screening? Screening recommendations vary based on age. If you are younger than age 40, screening is not recommended. If you are age 40 54 and you have no risk factors, screening is not recommended. If you are younger than age 55, ask your health care provider if you need screening if you have oneof these risk factors: ?Being of -[place] descent. ?Having a family history of prostate cancer. If you are age 55 69, talk with your health care provider about your need for screening and how often screening should be done. If you are older than age 70, screening is not recommended. This is because the risks that screening can cause are greater than the benefits that it may provide (risks outweigh the benefits). If you are at high risk for prostate cancer, your health care provider may recommend that you have screenings more often or start screening at a younger age. You may be at high risk if you: Are older than age 55. Are -Palest[place]. Have a father, brother, or uncle who has been diagnosed with prostate cancer. The risk may be higher if your family member's cancer occurred at an early age. What are the benefits of screening? There is a small chance that screening may lower your risk of dying from prostate cancer. The chance is small because prostate cancer is typically a slow-growing cancer, and most men with prostate cancer from a different cause. What are the risks of screening? The main risk of prostate cancer screening is diagnosing and treating prostate cancer that would never have caused any symptoms or problems (overdiagnosis and overtreatment). PSA screening cannot tell you if your PSA is high due to cancer or a different cause. A prostate biopsy is the only procedure to diagnose prostate cancer. Even the results of a biopsy may not tell you if your cancer needs anthony treated. Slow-growing prostate cancer may not need any treatment other than monitoring, so diagnosing and treating it may cause unnecessary stress or other side effects. A prostate biopsy may also cause: Infection or fever. A false negative. This is a result that shows that you do not have prostate cancer when you actually do have prostate cancer. Questions to ask your health care provider When should I start prostate cancer screening? What is my risk for prostate cancer? How often do I need screening? What type of screening tests do I need? How do I get my test results? What do my results mean? Do I need treatment? Contact a health care provider if: You have difficulty urinating. You have pain when you urinate or ejaculate. You have blood in your urine or semen. You have pain in your back or in the area of your prostate. You have trouble getting or maintaining an erection (erectile dysfunction, ED). Summary Prostate cancer is a common type of cancer in men. The prostate (prostate gland) is located below the bladder and in front of the rectum. This gland adds fluid to semen during ejaculation. Prostate cancer screening may identify cancer at an early stage, when the cancer can be treated more easily. The prostate-specific antigen (PSA) test is the recommended screening test for prostate cancer. Discuss the risks and benefits of prostate cancer screening with your health care provider. If you are age 70 or older, screening is likely to lead to more risks than benefits (risks outweigh the benefits). This information is not intended to replace advice given to you by your health care provider. Make sure you discuss any questions you have with your health care provider. Document Released: 05/02/2018 Document Revised: 07/04/2018 Document Reviewed: 05/02/2018 [employer] Patient Education 2020 [employer]. Follow Up Care 05/10/2022 13:02:32 With:Landen CUETO, ROBERTO Cedeño, URO Address: When: Unknown [facility] 09-16-2022 Hospital Discharge instructions Patient Education 04/20/2022 17:30:09 Head Injury, Adult Head Injury, Adult There are many types of head injuries. Head injuries can be as minor as a bump, or they can be a serious medical issue. More severe head injuries include: A jarring injury to the brain (concussion). A bruise (contusion) of the brain. This means there is bleeding in the brain that can cause swelling. A cracked skull (skull fracture). Bleeding in the brain that collects, clots, and forms a bump (hematoma). After a head injury, most problems occur within the first 24 hours, but side effects may occur up to 7 10 days after the injury. It is important to watch your condition for any changes. You may need to be observed in the emergency department or urgent care, or you may be admitted to the hospital. What are the causes? There are many possible causes of a head injury. A serious head injury may be caused by a car accident, bicycle or motorcycle accidents, sports injuries, and falls. What are the symptoms? Symptoms of a head injury include a contusion, bump, or bleeding at the site of the injury. Other physical symptoms may include: Headache. Nausea or vomiting. Dizziness. Feeling tired. Being uncomfortable around bright lights or loud noises. Seizures. Trouble being awakened. Fainting. Mental or emotional symptoms may include: Irritability. Confusion and memory problems. Poor attention and concentration. Changes in eating or sleeping habits. Anxiety or depression. How is this diagnosed? This condition can usually be diagnosed based on your symptoms, a description of the injury, and a physical exam. You may also have imaging tests done, such as a CT scan or MRI. How is this treated? Treatment for this condition depends on the severity and type of injury you have. The main goal of treatment is to prevent complications and to allow the brain time to heal. Mild head injury If you have a mild head injury, you may be sent home and treatment may include: Observation. A responsible adult should stay with you for 24 hours after your injury and check on you often. Physical rest. Brain rest. Pain medicines. Severe head injury If you have a severe head injury, treatment may include: Close observation. This includes hospitalization with frequent physical exams. Medicines to relieve pain, prevent seizures, and decrease brain swelling. Breathing support. This may include using a ventilator. Treatments to manage the swelling inside the brain. Brain surgery. This may be needed to: ?Remove a blood clot. ?Stop the bleeding. ?Remove a part of the skull to allow room for the brain to swell. Follow these instructions at home: Activity Rest and avoid activities that are physically hard or tiring. Make sure you get enough sleep. Limit activities that require a lot of thought or attention, such as: ?Watching TV. ?Playing memory games and puzzles. ?Job-related work or homework. ?Working on the computer, using social media, and texting. Avoid activities that could cause another head injury, such as playing sports, until your health care provider approves. Having another head injury, especially before the first one has healed, can bedangerous. Ask your health care provider when it is safe for you to return to your regular activities, including work or school. Ask your health care provider for a efho-oa-zsex plan for gradually returning to activities. Ask your health care provider when you can drive, ride a bicycle, or use heavy machinery. Your ability to react may be slower after a brain injury. Do not do these activities if you are dizzy. Lifestyle Do not drink alcohol until your health care provider approves. Do not use drugs. Alcohol and certain drugs may slow your recovery and can put you at risk of further injury. If it is harder than usual to remember things, write them down. If you are easily distracted, try to do one thing at a time. Talk with family members or close friends when making important decisions. Tell your friends, family, a trusted colleague, and wool batting worker about your injury, symptoms, and restrictions. Have them watch for any new or worsening problems. General instructions Take kcst-pmb-gcykqzd and prescription medicines only as told by your health care provider. Have someone stay with you for 24 hours after your head injury. This person should watch you for any changes in your symptoms and be ready to seek medical help. Keep all follow-up visits as told by your health care provider. This is important. How is this prevented? Work on improving your balance and strength to avoid falls. Wear a seatbelt when you are in a moving vehicle. Wear a helmet when riding a bicycle, skiing, or doing any other sport or activity that has a risk of injury. If you drink alcohol: ?Limit how much you use to: ?0 1 drink a day for women. ?0 2 drinks a day for men. ?Be aware of how much alcohol is in your drink. In the [place] one drink equals one 12 oz bottle of beer (355 mL), one 5 oz glass of wine (148 mL), or one 1 oz glass of hard liquor (44 mL). Take safety measures in your home, such as: ?Removing clutter and tripping hazards from floors and stairways. ?Using grab bars in bathrooms and handrails by stairs. ?Placing non-slip mats on floors and in bathtubs. ?Improving lighting in dim areas. Get help right away if: You have: ?A severe headache that is not helped by medicine. ?Trouble walking or weakness in your arms and legs. ?Clear or bloody fluid coming from your nose or ears. ?Changes in your vision. ?A seizure. You lose your balance. You vomit. Your pupils change size. Your speech is slurred. Your dizziness gets worse. You faint. You are sleepier than normal and have trouble staying awake. Your symptoms get worse. These symptoms may represent a serious problem that is an emergency. Do not wait to see if the symptoms will go away. Get medical help right away. Call your local emergency services (911 in the [place] Do not drive yourself to the hospital. Summary Head injuries can be minor or they can be a serious medical issue requiring immediate attention. Treatment for this condition depends on the severity and type of injury you have. Ask your health care provider when it is safe for you to return to your regular activities, including work or school. Head injury prevention includes wearing a seat belt in a motor vehicle, using a helmet on a bicycle, limiting alcohol use, and taking safety measures in your home. This information is not intended to replace advice given to you by your health care provider. Make sure you discuss any questions you have with your health care provider. Document Released: 07/22/2006 Document Revised: 08/19/2019 Document Reviewed: 08/14/2019 [employer] Patient Education 2020 [employer]. 04/20/2022 17:30:06 Laceration Care, Adult Laceration Care, Adult A laceration is a cut that may go through all layers of the skin and into the tissue that is right under the skin. Some lacerations heal on their own. Others need to be closed with stitches (sutures), nestor, skin adhesive strips, or skin glue. Proper care of a laceration reduces the risk for infection, helps the laceration heal better, and may prevent scarring. How to care for your laceration Wash your hands with soap and water before touching your wound or changing your bandage (dressing).If soap and water are not available, use hand knitting machine fixer head. Keep the wound clean and dry. If you were given a dressing, you should change it at least once a day, or as told by your health care provider. You should also change it if it becomes wet or dirty. If sutures or nestor were used: Keep the wound completely dry for the first 24 hours, or as told by your health care provider. After that time, you may shower or bathe. However, make sure that the wound is not soaked in water untilafter the sutures or nestor have been removed. Clean the wound once each day, or as told by your health care provider: ?Wash the wound with soap and water. ?Rinse the wound with water to remove all soap. ?Pat the wound dry with a clean towel. Do not rub the wound. After cleaning the wound, apply a thin layer of antibiotic ointment as told by your health care provider. This will help prevent infection and keep the dressing from sticking to the wound. Have the sutures or nestor removed as told by your health care provider. If skin adhesive strips were used: Do not get the skin adhesive strips wet. You may shower or bathe, but be careful to keep the wound dry. If the wound gets wet, pat it dry with a clean towel. Do not rub the wound. Skin adhesive strips fall off on their own. You may trim the strips as the wound heals. Do not remove skin adhesive strips that are still stuck to the wound. They will fall off in time. If skin glue was used: Try to keep the wound dry, but you may briefly wet it in the shower or bath. Do not soak the wound in water, such as by swimming. After you have showered or bathed, gently pat the wound dry with a clean towel. Do not rub the wound. Do not do any activities that will make you sweat heavily until the skin glue has fallen off on itsown. Do not apply liquid, cream, or ointment medicine to the wound while the skin glue is in place. Using those may loosen the film before the wound has healed. If a dressing is placed over the wound, be careful not to apply tape directly over the skin glue. Doing that may cause the glue to be pulled off before the wound has healed. Do not pick at the glue. Skin glue usually remains in place for 5 10 days and then falls off the skin. General instructions Take fujz-vol-glayann and prescription medicines only as told by your health care provider. If you were prescribed an antibiotic medicine or ointment, take or apply it as told by your health care provider. Do not stop using it even if your condition improves. Do not scratch or pick at the wound. Check your wound every day for signs of infection. Watch for: ?Redness, swelling, or pain. ?Fluid, blood, or pus. Raise (elevate) the injured area above the level of your heart while you are sitting or lying down for the first 24 48 hours after the laceration is repaired. If directed, put ice on the affected area: ?Put ice in a plastic bag. ?Place a towel between your skin and the bag. ?Leave the ice on for 20 minutes, 2 3 times a day. Keep all follow-up visits as told by your health care provider. This is important. Contact a health care provider if: You received a tetanus shot and you have swelling, severe pain, redness, or bleeding at the injection site. You have a fever. A wound that was closed breaks open. You notice a bad smell coming from your wound or your dressing. You notice something coming out of the wound, such as wood or glass. Your pain is not controlled with medicine. You have increased redness, swelling, or pain at the site of your wound. You have fluid, blood, or pus coming from your wound. You need to change the dressing often due to fluid, blood, or pus that is draining from the wound. You develop a new rash. You develop numbness around the wound. Get help right away if: You develop severe swelling around the wound. Your pain suddenly increases and is severe. You develop painful lumps near the wound or on skin anywhere else on your body. You have a red streak going away from your wound. The wound is on your hand or foot and you cannot properly move a finger or toe. The wound is on your hand or foot, and you notice that your fingers or toes look pale or bluish. Summary A laceration is a cut that may go through all layers of the skin and into the tissue that is right under the skin. Some lacerations heal on their own. Others need to be closed with stitches (sutures), nestor, skinadhesive strips, or skin glue. Proper care of a laceration reduces the risk of infection, helps the laceration heal better, and prevents scarring. This information is not intended to replace advice given to you by your health care provider. Make sure you discuss any questions you have with your health care provider. Document Released: 07/22/2006 Document Revised: 09/19/2018 Document Reviewed: 08/11/2018 Else[employer] Patient Education 2020 [employer] Follow Up Care 04/18/2022 11:28:13 With:Laci MICHELLE MD, FAM Address: When: only if needed [facility] [place] 09-09-2022 Hospital Discharge instructions Patient Education 04/13/2022 02:01:38 Wound Care, Adult Wound Care, Adult Taking care of your wound properly can help to prevent pain, infection, and scarring. It can also help your wound to heal more quickly. How to care for your wound Wound care Follow instructions from your health care provider about how to take care of your wound. Make sure you: ?Wash your hands with soap and water before you change the bandage (dressing). If soap and water are not available, use hand knitting machine fixer head. ?Change your dressing as told by your health care provider. ?Leave stitches (sutures), skin glue, or adhesive strips in place. These skin closures may need to stay in place for 2 weeks or longer. If adhesive strip edges start to loosen and curl up, you may trim the loose edges. Do not remove adhesive strips completely unless your health care provider tells you to do that. Check your wound area every day for signs of infection. Check for: ?Redness, swelling, or pain. ?Fluid or blood. ?Warmth. ?Pus or a bad smell. Ask your health care provider if you should clean the wound with mild soap and water. Doing this may include: ?Using a clean towel to pat the wound dry after cleaning it. Do not rub or scrub the wound. ?Applying a cream or ointment. Do this only as told by your health care provider. ?Covering the incision with a clean dressing. Ask your health care provider when you can leave the wound uncovered. Keep the dressing dry until your health care provider says it can be removed. Do not take baths, swim, use a hot tub, or do anything that would put the wound underwater until your health care provider approves. Ask your health care provider if you can take showers. You may only be allowed to take sponge baths. Medicines If you were prescribed an antibiotic medicine, cream, or ointment, take or use the antibiotic as told by your health care provider. Do not stop taking or using the antibiotic even if your condition improves. Take msff-ofl-zqkgfpd and prescription medicines only as told by your health care provider. If you were prescribed pain medicine, take it 30 or more minutes before you do any wound care or as told byyour health care provider. General instructions Return to your normal activities as told by your health care provider. Ask your health care provider what activities are safe. Do not scratch or pick at the wound. Do not use any products that contain nicotine or tobacco, such as cigarettes and e-cigarettes. These may delay wound healing. If you need help quitting, ask your health care provider. Keep all follow-up visits as told by your health care provider. This is important. Eat a diet that includes protein, vitamin A, vitamin C, and other nutrient-rich foods to help the wound heal. ?Foods rich in protein include meat, dairy, beans, nuts, and other sources. ?Foods rich in vitamin A include carrots and dark green, leafy vegetables. ?Foods rich in vitamin C include citrus, tomatoes, and other fruits and vegetables. ?Nutrient-rich foods have protein, carbohydrates, fat, vitamins, or minerals. Eat a variety of healthy foods including vegetables, fruits, and whole grains. Contact a health care provider if: You received a tetanus shot and you have swelling, severe pain, redness, or bleeding at the injection site. Your pain is not controlled with medicine. You have redness, swelling, or pain around the wound. You have fluid or blood coming from the wound. Your wound feels warm to the touch. You have pus or a bad smell coming from the wound. You have a fever or chills. You are nauseous or you vomit. You are dizzy. Get help right away if: You have a red streak going away from your wound. The edges of the wound open up and separate. Your wound is bleeding, and the bleeding does not stop with gentle pressure. You have a rash. You faint. You have trouble breathing. Summary Always wash your hands with soap and water before changing your bandage (dressing). To help with healing, eat foods that are rich in protein, vitamin A, vitamin C, and other nutrients. Check your wound every day for signs of infection. Contact your health care provider if you suspectthat your wound is infected. This information is not intended to replace advice given to you by your health care provider. Make sure you discuss any questions you have with your health care provider. Document Released: 04/30/2009 Document Revised: 11/09/2019 Document Reviewed: 02/05/2017 [employer] Patient Education 2020 [employer]. 04/13/2022 02:01:38 Laceration Care, Adult, [place] Laceration Care, Adult A laceration is a cut that may go through all layers of the skin. The cut may also go into the tissue that is right under the skin. Some cuts heal on their own. Others need to be closed with stitches(sutures), nestor, skin adhesive strips, or skin glue. Taking care of your injury lowers your riskof infection, helps your injury to heal better, and may prevent scarring. Supplies needed: Soap. Water. Hand knitting machine fixer head. Bandage (dressing). Antibiotic ointment. Clean towel. How to take care of your cut Wash your hands with soap and water before touching your wound or changing your bandage. If soap and water are not available, use hand knitting machine fixer head. If your doctor used stitches or nestor: Keep the wound clean and dry. If you were given a bandage, change it at least once a day as told by your doctor. You should also change it if it gets wet or dirty. Keep the wound completely dry for the first 24 hours, or as told by your doctor. After that, you may take a shower or a bath. Do not get the wound soaked in water until after the stitches or nestor have been removed. Clean the wound once a day, or as told by your doctor: ?Wash the wound with soap and water. ?Rinse the wound with water to remove all soap. ?Pat the wound dry with a clean towel. Do not rub the wound. After you clean the wound, put a thin layer of antibiotic ointment on it as told by your doctor. This ointment: ?Helps to prevent infection. ?Keeps the bandage from sticking to the wound. Have your stitches or nestor removed as told by your doctor. If your doctor used skin adhesive strips: Keep the wound clean and dry. If you were given a bandage, you should change it at least once a day as told by your doctor. You should also change it if it gets wet or dirty. Do not get the skin adhesive strips wet. You can take a shower or a bath, but keep the wound dry. If the wound gets wet, pat it dry with a clean towel. Do not rub the wound. Skin adhesive strips fall off on their own. You can trim the strips as the wound heals. Do not remove any strips that are still stuck to the wound. They will fall off after a while. If your doctor used skin glue: Try to keep your wound dry, but you may briefly wet it in the shower or bath. Do not soak the woundin water, such as by swimming. After you take a shower or a bath, gently pat the wound dry with a clean towel. Do not rub the wound. Do not do any activities that will make you really sweaty until the skin glue has fallen off on itsown. Do not apply liquid, cream, or ointment medicine to your wound while the skin glue is still on. If you were given a bandage, you should change it at least once a day or as told by your doctor. You should also change it if it gets dirty or wet. If a bandage is placed over the wound, do not let the tape touch the skin glue. Do not pick at the glue. The skin glue usually stays on for 5 10 days. Then, it falls off the skin. General instructions Take rwux-djz-ufhlcka and prescription medicines only as told by your doctor. If you were given antibiotic medicine or ointment, take or apply it as told by your doctor. Do not stop using it even if your condition improves. Do not scratch or pick at the wound. Check your wound every day for signs of infection. Watch for: ?Redness, swelling, or pain. ?Fluid, blood, or pus. Raise (elevate) the injured area above the level of your heart while you are sitting or lying down. If directed, put ice on the affected area: ?Put ice in a plastic bag. ?Place a towel between your skin and the bag. ?Leave the ice on for 20 minutes, 2 3 times a day. Prevent scarring by covering your wound with sunscreen of at least 30 SPF whenever you are outside after your wound has healed. Keep all follow-up visits as told by your doctor. This is important. Get help if: You got a tetanus shot and you have any of these problems at the injection site: ?Swelling. ?Very bad pain. ?Redness. ?Bleeding. You have a fever. A wound that was closed breaks open. You notice a bad smell coming from your wound or your bandage. You notice something coming out of the wound, such as wood or glass. Medicine does not relieve your pain. You have more redness, swelling, or pain at the site of your wound. You have fluid, blood, or pus coming from your wound. You notice a change in the color of your skin near your wound. You need to change the bandage often because fluid, blood, or pus is coming from the wound. You start to have a new rash. You start to have numbness around the wound. Get help right away if: You have very bad swelling around the wound. Your pain suddenly gets worse and is very bad. You notice painful lumps near the wound or anywhere on your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
[2024-04-22 07:41] VITALS: BP 177/85; PULSE 77; TEMP 36.1; O2SAT 94
[2024-04-22] MEDS: CEFTRIAXONE 1,000 MG, LIDOCAINE HCL/PF 2.1 ML IM (08:26)
[2024-04-22] MEDS: LIDOCAINE 2% JELLY 10 ML UR (08:40)
[2024-04-22] MEDS: LIDOCAINE HCL 1% 100 MG/10 ML MDV INJ (08:42)
--- NOTE | 2024-04-22 09:08 | P.URON_ITS ---
Urology Surgery Operative Note Operative Note Procedure Date: 04/22/24 Time Out Performed: yes Pre-op Diagnosis: 1. Elevated PSA 2. Abnormal MRI Post-op Diagnosis: same as pre-op Procedures performed: 1. MRI fusion prostate biopsy, transrectal approach 2. Ultrasound for needle prostate biopsy 3. Transrectal ultrasound of prostate and seminal vesicles 4. Nerve block of prostate Anesthesia: local Primary Surgeon: Erin Schuster Complications: none Estimated blood loss (mL): 0 Findings: Hypoechoic area left peripheral zone base and mid gland. SVs wnl. SÁNCHEZ - L peripheral zone, mid gland, 3 targeted biopsies Standard 12 core prostate biopsy Volume 57.4 cc (5.3 x 5.6 x 3.8 cm) Specimens: 1. Left base lateral 2. Left base medial 3. Left mid lateral 4. Left mid medial 5. Left apex lateral 6. Left apex medial 7. Right base lateral 8. Right base medial 9. Right mid lateral 10. Right mid medial 11. Right apex lateral 12. Right apex medial 13. SÁNCHEZ - L PZ, mid Indications for Procedures: 69 year old male with history of elevated PSA 5.4 on 02/07/2024, PSA density 0.07. MP-MRI prostate 03/25/24 showed PIRADS 4 lesion at left peripheral zone, mid gland 7x6 mm. Prostate volume 67 ml. CHRIS left side higher than right. After discussion of risks/benefits of management options and biopsy approaches, he elected to proceed with MRI fusion transrectal prostate biopsy under local. Risks were discussed to include but not limited to bleeding, pain, infection, damage to surrounding structures, hematuria, difficulty urinating, and need for additional procedures. Detailed description of Procedure: After informed consent was obtained, the patient was brought to the operating suite and transferred onto the operating table in supine position. Sequential compression devices were placed on bilateral lower extremities. He received the appropriate dose of preoperative IM antibiotics (Ceftriaxone 1 g). He was positioned in the left lateral decubitus position and the appropriate pressure points padded, prepped and draped in the usual fashion for this procedure. An operative timeout was performed confirming the patient's identity, procedure and safety checks. Lidocaine gel was inserted per rectum. The Right On Interactive MRI fusion biopsy system was set up over the patient's pelvis for transrectal approach of prostate biopsy. A well lubricated transrectal ultrasound probe was inserted into the rectum and the prostate was aligned. The gland was visualized fully in axial and sagittal views to allow for identification of anatomy, volume and location of the urethra as noted in findings. Local anesthetic was applied to SV/prostate junction bilaterally for periprostatic block for pain control during and after procedure. After rendering of real-time images with the preoperative MRI prostate, the [employer] fusion biopsy system was used to target the region of interest. Three core needle biopsies were obtained from the region of interest. Thereafter one core needle biopsy was obtained in the typical systematic 12 core template including the lateral and medial aspects of the prostate base, mid and apex of the left and right lobes, respectively. The ultrasound probe was removed and the rectum was cleaned. No evidence of rectal bleeding. The patient tolerated the procedure well and was sent to PACU in stable condition. Plan: Follow up in 1-2 weeks for pathology review. Post op abx provided. Pt advised to present to ER for fever, chills, inability to void, excessive bleeding.
== END 2024-04-22 09:15 | disposition home or self-care (01) ==
PROVIDERS: PCP Family Medicine; Visit Provider Urology
PROC: (CPT 55700; principal; 2024-04-22 08:00)
DX: C61 Malignant neoplasm of prostate (principal); R97.20 Elevated prostate specific antigen [PSA]; I10 Essential (primary) hypertension; N28.89 Other specified disorders of kidney and ureter; R93.89 Abnormal findings on diagnostic imaging of other specified body structures
CPT/HCPCS: 55700; J0696